=== PATIENT | female | born 1995 | race Caucasian/White ===

== ENCOUNTER → 2019-10-22 10:33 | Outpatient (BNVA) | payer SELFPAY | PROVIDERS: Family Provider Nurse Practitioner Family; Visit Provider Nurse Practitioner Family | DX: N39.0 Urinary tract infection, site not specified (principal); R31.29 Other microscopic hematuria | CPT/HCPCS: 81000 ==

== ENCOUNTER → 2020-05-23 12:34 | Outpatient (BNVA) | payer OTHER, SELFPAY | PROVIDERS: Family Provider Nurse Practitioner Family; Visit Provider Nurse Practitioner Family | DX: Z11.59 Encounter for screening for other viral diseases (principal) | CPT/HCPCS: 87635 ==

== ENCOUNTER → 2020-06-25 13:31 | Outpatient (BNVA) | payer OTHER, SELFPAY | PROVIDERS: Family Provider Nurse Practitioner Family; Visit Provider Nurse Practitioner | DX: J20.9 Acute bronchitis, unspecified (principal); Z11.59 Encounter for screening for other viral diseases | CPT/HCPCS: 87635 ==

== ENCOUNTER → 2020-08-26 15:13 | Outpatient (BNVA) | payer OTHER, SELFPAY | PROVIDERS: Family Provider Nurse Practitioner Family; Visit Provider Nurse Practitioner Family | DX: J01.40 Acute pansinusitis, unspecified (principal); Z20.828 Contact with and (suspected) exposure to other viral communicable diseases | CPT/HCPCS: 87635 ==

== ENCOUNTER 2020-09-02 12:04 | Emergency (ER) | payer OTHER, SELFPAY ==
[2020-09-02 12:21] VITALS: BP 168/79; PULSE 97; RESP 18; TEMP 36.6; O2SAT 97; BMI 65.7
--- NOTE | 2020-09-02 13:03 | XRR_ITS ---
PROCEDURE INFORMATION: Exam: XR Chest, 1 View Exam date and time: 09/02/2020 1:05 PM Age: 24 years old Clinical indication: Shortness of breath. Bronchitis. Pneumonia? TECHNIQUE: Imaging protocol: XR of the chest Views: 1 view. COMPARISON: No relevant prior studies available. FINDINGS: Lungs: No pulmonary consolidation. Pleural spaces: No pleural effusion. No pneumothorax. Heart/Mediastinum: The cardiac silhouette is unremarkable. No gross evidence of pneumomediastinum. Bones/joints: No gross fracture. XR/XR chest 1V portable [id number] IMPRESSION: No acute cardiopulmonary abnormality identified.
[2020-09-02 13:17] VITALS: BP 168/88; PULSE 88; RESP 20; O2SAT 99
[2020-09-02] MEDS: azithromycin 250 mg Tablet 500 MG PO (13:20)
[2020-09-02] MEDS: dexamethasone 4 mg/mL INJ 6 MG IVP (13:20)
[2020-09-02] MEDS: sodium chloride 0.9% 1,000 ML 999 ML IV (13:21)
[2020-09-02 13:51] VITALS: O2SAT 99
[2020-09-02 14:19] LABS: Basophils % 0.5 %; Eosinophils # 0.1 10^3/uL (0.0-0.8); Eosinophils % 1.3 %; Hematocrit 45.1 % (37.0-47.0); Hemoglobin 14.7 g/dL (11.5-15.3); Lymphocytes # 1.7 10^3/uL (0.8-4.8); Lymphocytes % 44.5 %; Mean Corpuscular HGB Conc 32.6 g/dL (30.0-36.0); Mean Corpuscular Hemoglobin 29.1 pg (28.0-34.0); Mean Corpuscular Volume 89.3 fL (81-99); Mean Platelet Volume 10.8 fL (7.4-10.4); Monocytes # 0.4 10^3/uL (0.2-0.9); Monocytes % 11.1 %; Neutrophils # 1.56 10^3/uL (1.8-7.7); Neutrophils % 42.1 %; Nucleated Red Blood Cells % 0 %; Platelet Count 216 10^3/cmm (130-400); Red Blood Count 5.05 10^6/uL (4.1-5.3); Red Cell Distribution Width 13.8 % (12.1-15.1); White Blood Count 3.7 10^3/uL (4.0-10.0)
[2020-09-02 14:31] LABS: Lactic Sepsis W/Reflex 0.8 mmol/L (0.5-2.2)
[2020-09-02 14:36] LABS: HCG, Serum Qual Negative (Negative)
[2020-09-02 14:40] LABS: Alanine Aminotransferase 99 U/L (0-33); Albumin Level 4.1 g/dL (3.5-5.2); Alkaline Phosphatase 123 IU/L (35-105); Anion Gap 11.2 (5-19); Aspartate Amino Transferase 63 U/L (0-32); Blood Urea Nitrogen 13 mg/dL (6-20); Calcium 9.4 mg/dL (8.5-10.5); Carbon Dioxide 27 mmol/L (22-29); Chloride 101 mmol/L (98-107); Globulin 3.8 g/dL (1.3-4.6); Glucose 82 mg/dL (65-115); Osmolality Calculated 279 mOsm/kg (285-295); Potassium 4.2 mmol/L (3.5-5.1); Sodium 135 mmol/L (136-145); Total Bilirubin 0.4 mg/dL (0.15-1.2); Total Protein 7.9 g/dL (6.6-8.7)
--- NOTE | 2020-09-02 14:45 | ED_ITS ---
HPI - COVID General: Chief Complaint: COVID symptoms Stated Complaint: COVID +, IN COVID WR Time Seen by Provider: 09/02/20 12:34 Triage information: Has fever, cough or shortness of breath . No known COVID + exposure last 14 days History of Present Illness: HPI Narrative: The patient is a 24-year-old female who tested positive for coronavirus 7 days ago who comes to the ER complaining of continued cough, shortness of breath. She says her chest hurts when she takes deep breaths, coughs, and moves. The pain is reproducible on palpation. She said she has had bronchitis before and feels like she is developing bronchitis. She is currently taking Augmentin. She has not had steroids. MD complaint: known COVID positive COVID 19 common symptoms: positive dyspnea, body aches and headache(s); negative fever(s), chills, cough, throat pain, nasal congestion or diarrhea COVID 19 other sytmptoms: positive chest pain; negative requiring oxygen or respiratory distress Severity: mild COVID Results: SARS-CoV-2 RNA (RT-PCR) Detected (NOT DETECTED) A 08/26/20 15:13 08/26/20 Review of Systems General: Reports: 10 or more systems reviewed and unremarkable except in HPI and below Const: Reports: body aches; Denies: fever(s) or chills Eyes: Denies: change in vision, blurry vision or eye redness ENMT: Denies: throat pain, swelling of lips/tongue, ear or mastoid pain or nasal congestion Card: Reports: chest pain; Denies: palpitations, irregular heart rhythm, edema, dyspnea on exertion or orthopnea Resp: Reports: dyspnea GI: Denies: abdominal pain, diarrhea or GI cramping : Denies: flank pain, difficulty voiding, urinary frequency or urinary urgency Musc: Denies: neck pain, back pain, extremity pain, joint pain, joint redness, limited range of motion or muscle weakness Skin/Breast: Denies: rash, pruritus, erythema, skin pain or skin tenderness Neuro: Reports: headache(s) Psych: Denies: anxiety or depression Endo: Denies: polyuria All/Imm: Denies: urticaria, throat swelling or tongue swelling PFSH ED PFSH: Social History Smoking and tobacco status: never smoked Alcohol intake: current Physical Exam Const: COMMON NORMALS: no acute distress, average body habitus, patient oriented x3, no limitations, healthy appearing, alert and well nourished GENERAL APPEARANCE: cooperative, comfortable, well kempt and well developed ORIENTATION/CONSCIOUSNESS: Yes awake, Yes oriented to person, Yes oriented to place and Yes oriented to time HENMT: COMMON NORMALS: normocephalic, external ears normal and Normal external nose present HEAD & SCALP: normal to inspection and normocephalic NOSE: Normal external nose present EXTERNAL EAR: Yes external ears normal MOUTH: Normal oral and palatal mucosa present THROAT: posterior oropharynx normal Eye: COMMON NORMALS: Equal, round and reactive pupils present and EOMs intact bilaterally GENERAL EYE: appearance normal, both eyes and all related structures PUPIL: Yes Equal, round and reactive pupils present Neck/C-Spine: COMMON NORMALS: full ROM, no lymphadenopathy, no meningeal signs and no JVD GENERAL: Yes normal visual inspection Lymph: LYMPHATIC: no lymphadenopathy noted Chest: COMMONS NORMALS: normal inspection of the chest OTHER: Left chest wall tenderness reproducing her chief complaint. Resp: COMMON NORMALS: normal respiratory effort, No retractions, No use of accessory muscles, clear to auscultation bilaterally and percussion normal EFFORT & INSPECTION: Yes able to speak in complete sentences AUSCULTATION: clear to auscultation bilaterally PERCUSSION: percussion normal Cardio: COMMON NORMALS: no JVD, regular rate, regular rhythm, S1 normal heart sound present, S2 normal heart sound present and Peripheral pulses 2+ throughout RATE: regular rate RHYTHM: regular rhythm HEART SOUNDS: S1 normal heart sound present and S2 normal heart sound present PERIPHERAL PULSES: Peripheral pulses 2+ throughout GI: COMMON NORMALS: Normal to inspection, nondistended, normoactive bowel sounds present, Soft to palpation, non-tender and no masses INSPECTION: Yes normal to inspection PALPATION: Yes Soft to palpation : COMMON NORMALS: Yes no CVA tenderness BLADDER/KIDNEY EXAM: Yes no CVA tenderness Back/Pelvis: COMMON NORMALS: no CVA tenderness, thoracic and lumbar spine normal to inspection, no thoracic nor lumbar tenderness and thoraco-lumbar ROM normal Extremity: COMMON NORMALS: normal to inspection, full ROM, capillary refill normal, no joint enlargement and no pedal edema GENERAL: Yes normal exam except as noted Neuro: COMMON NORMALS: patient oriented x3, CN's II-XII intact bilaterally, moves all extremities, no focal motor deficits, no sensory deficits noted and gait normal SENSORIUM/ORIENTATION: Yes alert, Yes oriented to person, Yes oriented to place and Yes oriented to time MENINGEAL SIGNS: Yes no meningeal signs Psych: COMMON NORMALS: mental status grossly normal, Normal thought process present, cooperative, normal affect and speech normal APPEARANCE: Yes well kempt ATTITUDE: Yes calm SPEECH: Yes normal speech THOUGHT PROCESS: Normal thought process present Skin: COMMON NORMALS: no rashes or lesions noted GENERAL SKIN EXAM: no rashes or lesions noted Course Vital Signs: Vital signs: Vital Signs Temperature 97.9 F 09/02/20 12:21 Pulse Rate 88 09/02/20 13:17 Respiratory Rate 20 H 09/02/20 13:17 Blood Pressure 168/88 09/02/20 13:17 Pulse Oximetry 99 09/02/20 13:51 MDM - COVID MDM Narrative: Medical decision making narrative: The patient suffered from c oronavirus infection diagnosed 7 days ago. She continues to have mild symptoms. Steroids and azithromycin will be added to her regimen. Hepatitis acute panel is negative today. Return to the ER with worsening symptoms otherwise follow-up with your primary care physician in a few days to monitor improvement of symptoms Lab Data: Labs: Lab Results 09/02/20 09/02/20 09/02/20 Range/Units 13:40 13:40 13:40 WBC 3.7 L (4.0-10.0) 10^3/ uL RBC 5.05 (4.1-5.3) 10^6/u L Hgb 14.7 (11.5-15.3) g/dL Hct 45.1 (37.0-47.0) % MCV 89.3 (81-99) fL MCH 29.1 (28.0-34.0) pg MCHC 32.6 (30.0-36.0) g/dL RDW 13.8 (12.1-15.1) % Plt Count 216 (130-400) 10^3/c mm MPV 10.8 H (7.4-10.4) fL Neut % (Auto) 42.1 % Lymph % (Auto) 44.5 % [place] % (Auto) 11.1 % Eos % (Auto) 1.3 % Baso % (Auto) 0.5 % Neut # (Auto) 1.56 L (1.8-7.7) 10^3/u L Lymph # (Auto) 1.7 (0.8-4.8) 10^3/u L [place] # (Auto) 0.4 (0.2-0.9) 10^3/u L Eos # (Auto) 0.1 (0.0-0.8) 10^3/u L Baso # (Auto) 0.0 (0.0-0.1) 10^3/u L Nucleated RBC % (a uto) 0 % Nucleated RBCs # 0.0 /100WBC Sodium 135 L (136-145) mmol/L Potassium 4.2 (3.5-5.1) mmol/L Chloride 101 (98-107) mmol/L Carbon Dioxide 27 (22-29) mmol/L Anion Gap 11.2 (5-19) BUN 13 (6-20) mg/dL Creatinine 0.6 (0.5-0.9) mg/dL GFR Calculation 125.0 (90-130) mL/min Glucose 82 (65-115) mg/dL Calculated Osmolal ity 279 L (285-295) mOsm/k g Lactic Acid 0.8 (0.5-2.2) mmol/L Calcium 9.4 (8.5-10.5) mg/dL Total Bilirubin 0.4 (0.15-1.2) mg/dL AST 63 H (0-32) U/L ALT 99 H (0-33) U/L Alkaline Phosphata se 123 H (35-105) IU/L Total Protein 7.9 (6.6-8.7) g/dL Albumin 4.1 (3.5-5.2) g/dL Globulin 3.8 (1.3-4.6) g/dL HCG, Qual (Negative) Hepatitis A IgM Ab (Nonreactive) Hep Bs Antigen (Nonreactive) Hep B Core IgM Ab (Nonreactive) Hepatitis C Antibo dy (Nonreactive) 09/02/20 09/02/20 Range/Units 13:40 13:40 WBC (4.0-10.0) 10^3/ uL RBC (4.1-5.3) 10^6/u L Hgb (11.5-15.3) g/dL Hct (37.0-47.0) % MCV (81-99) fL MCH (28.0-34.0) pg MCHC (30.0-36.0) g/dL RDW (12.1-15.1) % Plt Count (130-400) 10^3/c mm MPV (7.4-10.4) fL Neut % (Auto) % Lymph % (Auto) % [place] % (Auto) % Eos % (Auto) % Baso % (Auto) % Neut # (Auto) (1.8-7.7) 10^3/u L Lymph # (Auto) (0.8-4.8) 10^3/u L [place] # (Auto) (0.2-0.9) 10^3/u L Eos # (Auto) (0.0-0.8) 10^3/u L Baso # (Auto) (0.0-0.1) 10^3/u L Nucleated RBC % (a uto) % Nucleated RBCs # /100WBC Sodium (136-145) mmol/L Potassium (3.5-5.1) mmol/L Chloride (98-107) mmol/L Carbon Dioxide (22-29) mmol/L Anion Gap (5-19) BUN (6-20) mg/dL Creatinine (0.5-0.9) mg/dL GFR Calculation (90-130) mL/min Glucose (65-115) mg/dL Calculated Osmolal ity (285-295) mOsm/k g Lactic Acid (0.5-2.2) mmol/L Calcium (8.5-10.5) mg/dL Total Bilirubin (0.15-1.2) mg/dL AST (0-32) U/L ALT (0-33) U/L Alkaline Phosphata se (35-105) IU/L Total Protein (6.6-8.7) g/dL Albumin (3.5-5.2) g/dL Globulin (1.3-4.6) g/dL HCG, Qual Negative (Negative) Hepatitis A IgM Ab Non-reactive (Nonreactive) Hep Bs Antigen Non-reactive (Nonreactive) Hep B Core IgM Ab Non-reactive (Nonreactive) Hepatitis C Antibo dy Non-reactive (Nonreactive) COVID Results: SARS-CoV-2 RNA (RT-PCR) Detected (NOT DETECTED) A 08/26/20 15:13 08/26/20 Discharge Plan Discharge Patient Disposition: Home Clinical Impression: COVID-19 Condition: Stable Prescriptions: New azithromycin 250 mg tablet 250 mg PO DAILY 5 Days Qty: 4 RF: 0 Medrol (Nahid) 4 mg tablets,dose pack See Rx Instructions .ROUTE .COMPLEX Qty: 21 RF: 0 No Action amoxicillin-pot clavulanate [Augmentin] 875-125 mg tablet 1 tab PO BID 10 Days Qty: 20 RF: 0 Aleve 220 mg Tablet 880 mg PO PRN RF: 0 Discharge Orders: Discharge ED (Routine); Ordered 09/02/20 Ordered By: Baljinder Zaragoza Discharge Diet: Advance as tolerated Discharge Activity: Resume usual activity Patient Instructions: Opioid Safety, Upper Respiratory Infection - Adult Activity Restrictions/Additional Instructions: You are suffering from coronavirus infection. Please take the antibiotic and steroid as directed and return to the ER with worsening symptoms otherwise follow-up with your primary care physician in a few days to monitor improvement of your symptoms. The hepatitis test is normal. Coding Level of Care Code ED Chemical Tank Worker for Meera Fwpérez Exam Comprehensive
[2020-09-02 17:58] LABS: Hepatitis A Antibody IgM Non-Reactive (Nonreactive); Hepatitis B Core IgM Non-Reactive (Nonreactive); Hepatitis B Surface Antigen Non-Reactive (Nonreactive); Hepatitis C Virus Antibody Non-Reactive (Nonreactive)
[2020-09-02 18:28] VITALS: O2SAT 99
== END 2020-09-02 18:30 | disposition home or self-care (01) ==
PROVIDERS: Emergency Provider Family Medicine
DX: U07.1 COVID-19 (principal)
CPT/HCPCS: 71045; 80053; 80074; 83605; 84703; 85025; 96361; 96374; 99283; J1100; J7030; Q0144

== ENCOUNTER 2020-12-27 10:20 | Emergency (ER) | payer SELFPAY ==
[2020-12-27 10:25] VITALS: BP 177/137; PULSE 78; RESP 15; TEMP 36.4; O2SAT 100; BMI 61.8
--- NOTE | 2020-12-27 10:28 | XR_ITS ---
WS: [id number] Left ankle, 3 views, 12/27/2020 Clinical Data: injury/pain Comparison: None. Findings: No fractures or dislocations are seen. The ankle mortise is normal. The talus and calcaneus are unrem arkable. No soft tissue swelling over the medial or lateral malleolus is seen. XR/XR ankle LT min 3V* [id number] Impression: Negative left ankle.
--- NOTE | 2020-12-27 10:28 | W.ED.LOWEXIN ---
HPI - Extremity Injury (Lower) General: Chief Complaint: Extremity Injury, Lower Stated Complaint: left ankle pain Time Seen by Provider: 12/27/20 10:21 Source: patient Mode of arrival: ambulatory Limitations: no limitations History of Present Illness: HPI Narrative: Patient is a 25-year-old female who presents to ED today with a complaint of left ankle pain. Patient tells me she has recently began exercising and attempts to lose weight and states she was walking on a treadmill on an incline yesterday when she began noticing pain in her left ankle. She reports injuring her ankle 2 years ago after rolling it after jumping in a shallow pool. She states she has had pain in the ankle since that event. She feels like her ankle is swollen. She has no other complaints at this time. complaint: ankle injury Onset (ago): day(s) (yesterday) Type of Injury: unknown Place: home Severity: moderate Relieving factors: immobilization Exacerbating factors: weight bearing, movement and palpation Associated symptoms: Reports no associated symptoms Other symptoms: none Review of Systems Card: Denies: chest pain Resp: Denies: dyspnea Musc: Reports: joint pain (L ankle) and joint swelling (L ankle); Denies: neck pain, back pain, extremity pain, extremity swelling, joint redness, joint warmth or limited range of motion PFSH ED PFSH: Social History Smoking and tobacco status: never smoked Alcohol intake: current Physical Exam Const: COMMON NORMALS: no acute distress, no limitations and alert GENERAL APPEARANCE: cooperative NUTRITIONAL APPEARANCE: obese morbidly obese Extremity: COMMON NORMALS: capillary refill normal, no clubbing, cyanosis or edema, no calf tenderness and no pedal edema GENERAL: Yes normal exam except as noted LEFT LOWER EXTREMITY: Yes ankle joint (TTP medial malleolus) Left ankle: Yes neurovascular exam (normal) Neuro: COMMON NORMALS: moves all extremities, no focal motor deficits, no sensory deficits noted and gait normal SENSORIUM/ORIENTATION: Yes alert Skin: COMMON NORMALS: no rashes or lesions noted GENERAL SKIN EXAM: no rashes or lesions noted TRAUMA: no lacerations or abrasions Course Vital Signs: Vital signs: Vital Signs Temperature 97.5 F L 12/27/20 10:25 Pulse Rate 78 12/27/20 10:53 Respiratory Rate 15 12/27/20 10:25 Blood Pressure 177/137 12/27/20 10:53 Pulse Oximetry 100 12/27/20 10:53 MDM - Extremity Injury (Lower) Imaging Data^: XR L ankle: Radiologist's impression: [address] [address] XRay Report Signed Patient: Yuniel Rogers Unit #: [id number] : 1995 Age/Sex: 25 / F ADM Date: 12/27/20 Loc: ER Room/Bed: Attending Dr: Ordering Provider/Ordering MD: Monica Mason Date of Service: 12/27/20 Procedure(s): XR ankle LT min 3V* [id number] Accession Number(s): [id number] Report Number: [id number] WS: [id number] Left ankle, 3 views, 12/27/2020 Clinical Data: injury/pain Comparison: None. Findings: No fractures or dislocations are seen. The ankle mortise is normal. The talus and calcaneus are unremarkable. No soft tissue swelling over the medial or lateral malleolus is seen. XR/XR ankle LT min 3V* [id number] Impression: Negative left ankle. Dictated By: Jewell Marina MD Signed By: Jewell Marina MD Signed Date/Time: 12/27/20 1052 DD/ 1051 Discharge Plan Discharge Patient Disposition: Home Clinical Impression: Left ankle sprain Qualifiers: Encounter type: initial encounter Involved ligament of ankle: unspecified ligament Qualified Code(s): S93.402A - Sprain of unspecified ligament of left ankle, initial encounter Condition: Stable Prescriptions: No Action fluconazole [Diflucan] 150 mg tablet 150 mg PO Q3D 7 Days Qty: 3 RF: 0 nystatin 100,000 unit/gram cream 1 applic topical BID Qty: 30 RF: 2 Aleve 220 mg Tablet 880 mg PO PRN RF: 0 Discharge Orders: Discharge ED (Routine); Ordered 12/27/20 Ordered By: Monica Mason Patient Instructions: Ankle Sprain (ED), RICE Therapy (ED) Coding Level of Care Code ED Contract Administration Coordinator for Chg Fwd Exam Expanded Problem Focused
[2020-12-27 10:53] VITALS: BP 177/137; PULSE 78; O2SAT 100
== END 2020-12-27 11:02 | disposition home or self-care (01) ==
PROVIDERS: Emergency Provider Physician Assistant
DX: S93.402A Sprain of unspecified ligament of left ankle, initial encounter (principal); X58.XXXA Exposure to other specified factors, initial encounter; Y93.A1 Activity, exercise machines primarily for cardiorespiratory conditioning
CPT/HCPCS: 73610; 99283; E0114

== ENCOUNTER → 2021-05-27 14:05 | Outpatient (BNVA) | payer OTHER, SELFPAY | PROVIDERS: Visit Provider Nurse Practitioner | DX: Z20.822 Contact with and (suspected) exposure to COVID-19 (principal); J02.9 Acute pharyngitis, unspecified; R50.9 Fever, unspecified | CPT/HCPCS: 87635; 87880 ==

== ENCOUNTER → 2021-09-18 09:53 | Outpatient (BNVA) | payer SELFPAY | PROVIDERS: Visit Provider Physician Assistant | DX: M54.16 Radiculopathy, lumbar region (principal) | CPT/HCPCS: 72110 ==

== ENCOUNTER 2021-10-17 07:04 | Day surgery (SDC) | payer SELFPAY ==
[2021-10-12 10:04] VITALS: BMI 57.3
[2021-10-12 10:34] LABS: Basophils # 0.1 10^3/uL (0.0-0.1); Basophils % 0.6 %; Eosinophils # 0.1 10^3/uL (0.0-0.8); Eosinophils % 1.3 %; Hematocrit 43.3 % (37.0-47.0); Hemoglobin 14.4 g/dL (11.5-15.3); Lymphocytes # 1.8 10^3/uL (0.8-4.8); Lymphocytes % 21.3 %; Mean Corpuscular HGB Conc 33.3 g/dL (30.0-36.0); Mean Corpuscular Hemoglobin 29.5 pg (28.0-34.0); Mean Corpuscular Volume 88.7 fl (81-99); Mean Platelet Volume 10.4 fL (7.4-10.4); Monocytes # 0.8 10^3/uL (0.2-0.9); Monocytes % 8.9 %; Neutrophils # 5.76 10^3/uL (1.8-7.7); Neutrophils % 67.7 %; Nucleated Red Blood Cells % 0 %; Platelet Count 268 10^3/cmm (130-400); Red Blood Count 4.88 10^6/uL (4.1-5.3); Red Cell Distribution Width 13.4 % (12.1-15.1); White Blood Count 8.5 10^3/uL (4.0-10.0)
--- NOTE | 2021-10-12 10:44 | P.ANESASSM_ITS ---
Pre-Anesthetic Assessment Height/Weight: Height 1.7 m Weight 166.015 kg Operation Date: 10/17/21 08:30 Proposed Procedures p Lumbar Spine Decompression L4/5, L5/S1 32161/11413/m51.26(Left) - Nitish Suarez DO Familial anesthetic complications: none Was Beta Maribel taken within 24 hours: N/A Social No alcohol and No tobacco Exam alert, oriented x 3, clear to auscultation bilaterally and regular rate & rhythm Airway Submandibular: within normal limits Cervical ROM: within normal limits Mallampati: Class II Dentition: full Metabolic Morbid Obesity and Thyroid Disease PCOS [facility] [place] Lower Back Pain LLE radicular symptoms Anesthetic Plan ASA status: 3 Anesthesia: General Medications/Allergies Home Medications Medication Instructions Recorded Confirmed Last Taken Type naproxen sodium 220 mg tablet 880 mg PO PRN PRN 09/02/20 09/18/21 Unknown History (Aleve) levothyroxine 50 mcg capsule 50 mcg PO DAILY 07/29/21 10/12/21 Unknown History metformin 500 mg tablet 1,000 mg PO BID 07/29/21 10/12/21 Unknown History Allergies Allergy/AdvReac Type Severity Reaction Status Date / Time duloxetine [From Cymbalta] Allergy RASH Verified 10/12/21 10:00 [facility] Anesthesia Social History Smoking and tobacco status: never smoked Alcohol intake: current Data Anesthesia : 10/12/21 10:18 10/12/21 10:18 Short CBC 10/12/21 Range/Units 10:18 WBC 8.5 (4.0-10.0) 10^3/uL Hgb 14.4 (11.5-15.3) g/dL Hct 43.3 (37.0-47.0) % MCV 88.7 (81-99) fl Plt Count 268 (130-400) 10^3/cmm Neut % (Auto) 67.7 % Neut # (Auto) 5.76 (1.8-7.7) 10^3/uL Cardiac Studies: No Data to Display
[2021-10-12 10:56] LABS: Anion Gap 15.1 (5-19); Blood Urea Nitrogen 18 mg/dL (6-20); Calcium 9.8 mg/dL (8.5-10.5); Carbon Dioxide 23 mmol/L (22-29); Chloride 102 mmol/L (98-107); Glomerular Filtration Rate 123.9 mL/min (90-130); Glucose 88 mg/dL (65-115); Osmolality Calculated 283 mOsm/kg (285-295); Potassium 4.1 mmol/L (3.5-5.1); Sodium 136 mmol/L (136-145)
[2021-10-17] VITALS (10 sets, daily range): BP systolic 115–199; BP diastolic 72–104; PULSE 72–103; RESP 16–20; TEMP 36.2–36.8; O2SAT 97–99
--- NOTE | 2021-10-17 | SCC_ITS ---
Procedure done: 1. L4/5 laminectomy with partial facetectomy 2. L5/S1 laminectomy with partial facetectomy 19.3 seconds of fluoroscopic guidance, for a cumulative dose of 17.96 mGy, was provided to Dr. Suarez by the radiology department. C-arm images of the lumbar spine were saved for the patient's permanent record. [id number]
[2021-10-17] MEDS: sodium chloride 0.9% 1,000 ML 30 ML IV (07:48)
[2021-10-17] MEDS: scopolamine 1.5 Patch 1 PATCH TRANSDERMA (07:48)
--- NOTE | 2021-10-17 08:07 | W.PM.OPSUD ---
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
[2021-10-17 08:12] LABS: OR HCG Qualitative Urine Negative (Negative)
--- NOTE | 2021-10-17 08:33 | P.ANESUD_ITS ---
Pre-Anesthetic Update Pre-Anesthetic Assessment: Date of Surgery/Procedure: 10/17/21 Preop Chloe gnosis: HNP Left L4-5,L5-S1 Proposed Procedure: Operation Date: 10/17/21 08:30 Proposed Procedures p Lumbar Spine Decompression L4/5, L5/S1 70907/25569/m51.26(Left) - Nitishmaira Suarez, DO Any changes to Pre-Anesthetic Assessment?: No Last Intake: Intake Last Liquid Date 10/16/21 Last Liquid Time 19:00 Last Solid Date 10/16/21 Last Solid Time 19:00 Vitals: Temperature 97.9 F 10/17/21 07:36 Temperature Source Temporal Artery S can 10/17/21 07:36 Pulse Rate 103 H 10/17/21 07:36 Respiratory Rate 18 10/17/21 07:36 Blood Pressure 143/104 10/17/21 07:36 Blood Pressure Shagufta n 117 10/17/21 07:36 Pulse Oximetry 97 10/17/21 07:36 Oxygen Delivery Me thod 10/17/21 07:39 Exam: Pre-Anes Outpt Exam: alert, oriented x 3, clear to auscultation bilaterally and regular rate & rhythm Cardiac Studies: No Data to Display
[2021-10-17] MEDS: fentaNYL 50 mcg/mL INJ 2mL IVP (08:36)
--- NOTE | 2021-10-17 10:01 | P.OP_ITS ---
Operative Report Date of procedure: October 17, 2021 Pre-op diagnosis: Preop Diagnosis HNP Left L4-5,L5-S1 Post-op diagnosis: same Procedure done: 1. L4/5 laminectomy with partial facetectomy 2. L5/S1 laminectomy with partial facetectomy Surgeon: Nitish Suarez Associate Professor Of Sociology: Patrick Echavarria Associate Professor Of Sociology: The printing assistant, Patrick Echavarria, PAC was needed for his expertise under the microscope. He was important and necessary throughout the procedure to complete in a safe and timely manner. He assisted with patient positioning prepping and draping tissue retraction suctioning of the operative field protection of the dural sac and tissue closure Estimated blood loss (mL): 20 Procedure: 1. L4/5 laminectomy with partial facetectomy 2. L5/S1 laminectomy with partial facetectom Patient is brought to the operative suite. After undergoing anesthesia they are placed in the prone position. All areas of impingement are well padded. Patient is then prepped and draped in the normal sterile fashion. A skin incision is made over the L4/5 level. This is confirmed under c-arm guidance. A series of dilators are passed and the tubular retractor is docked on the L4 lamina. A bovie is used to clear the soft tissue off the lamina and the L 4/5 facet joint. A high speed chaparro is then used to perform the laminectomy and take down the medial aspect of the L 4/5 facet joint. A kerrison rongeure was then used to take down the remaining lamina and smooth the edge of the laminectomy up to the point where the ligamentum flavum attaches. Attention was then brought to the medial aspect of the facet joint. The remaining medial aspect of the superior and inferior aspect of the facet joint were taken down with the kerrison from the pedicle of L4 to L 5. The facet joint had significant hypertrophy. Attention was then brought to the Ligamentum Flavum. The ligament was taken down from the lamina of L4 to L5 and out medially to the remaining facet joint. The ligament was thick. The dura was then exposed. The dura was in good repair. The L4 nerve was then traced with a curette out the L4/5 foramen and found to be adequately decompressed. The L5 nerve was traced with a curette around the L5 pedicle. The lateral recess was opened with a kerrison helping to further decompress the L5 nerve. Wound is then irrigated copiously with saline and surgiflo is used to stop any bleeding. The tubular retractor is removed and A skin incision is made over the L5/S1 level. This is confirmed under c-arm guidance. A series of dilators are passed and the tubular retractor is docked on the L5 lamina. A bovie is used to clear the soft tissue off the lamina and the L 5/S1 facet joint. A high speed chaparro is then used to perform the l aminectomy and take down the medial aspect of the L 5/S1 facet joint. A kerrison rongeure was then used to take down the remaining lamina and smooth the edge of the laminectomy up to the point where the ligamentum flavum attaches. Attention was then brought to the medial aspect of the facet joint. The remaining medial aspect of the superior and inferior aspect of the facet joint were taken down with the kerrison from the pedicle of L5 to S1. The facet joint had significant hypertrophy. Attention was then brought to the Ligamentum Flavum. The ligament was taken down from the lamina of L5 to S1 and out medially to the remaining facet joint. The ligament was thick. The dura was then exposed. The dura was in good repair. The L5 nerve was then traced with a curette out the L5/S1 foramen and found to be adequately decompressed. The S1 nerve was traced with a curette around the S1 pedicle. The lateral recess was opened with a kerrison helping to further decompress the S1 nerve. Wound is then irrigated copiously with saline and surgiflo is used to stop any bleeding. The tubular retractor is removed and the wound is closed with vicryl and monocryl suture. Glue is then used to protect the wound. A sterile dressing is then placed. Patient was then placed in the supine position and transferred to the PACU in stable condition.
--- NOTE | 2021-10-17 10:06 | XR_ITS ---
WS: [id number] C-ARM RADIOGRAPHS LUMBAR SPINE; 2 IMAGES HISTORY: OR PICS COMPARISON: 09/18/2021 Intraoperative imaging obtained during spinal decompression. The compression indicated at the L5-S1 l evel. XR/XR lumbar spine 1V 15431 IMPRESSION: Intraoperative imaging during spine decompression.
[2021-10-17] MEDS: HYDROmorphone 1 mg/mL INJ 1 mL 0.5 MG IVP ×2 (10:20→11:14)
[2021-10-17] MEDS: HYDROcodone-acetaminophen 5-325 mg Tablet 1 TAB PO (11:47)
--- NOTE | 2021-10-17 16:05 | ANE.PACU2 ---
Inpatient post-anesthesia follow up: Airway intact: Yes Vital signs: Temperature 98.2 F Pulse Rate 82 Respiratory Rate 18 Blood Pressure 128/80 Pulse Oximetry 98 Oxygen Delivery Me thod Room Air Oxygen Flow Rate 6 Fraction of Inspir ed Oxygen Hydration adequate: Yes Nausea and vomiting: No Pain level: 5 Mental status: Baseline
== END 2021-10-17 13:00 | disposition home or self-care (01) ==
PROVIDERS: Physician Assistant; Visit Provider Orthopaedic Surgery
PROC: (CPT 63005; principal; 2021-10-17 08:20)
DX: M51.26 Other intervertebral disc displacement, lumbar region (principal); M51.27 Other intervertebral disc displacement, lumbosacral region; M51.37 Other intervertebral disc degeneration, lumbosacral region; M54.16 Radiculopathy, lumbar region; E66.01 Morbid (severe) obesity due to excess calories; Z68.43 Body mass index [BMI] 50.0-59.9, adult; E28.2 Polycystic ovarian syndrome
CPT/HCPCS: 63047; 63048; 72020; 76000; 80048; 81025; 84703; 85025; J0690; J1100; J1170; J2405; J2704; J2710; J3010; J3490; J7030

== ENCOUNTER → 2021-12-18 08:56 | Outpatient (BNVA) | payer SELFPAY | PROVIDERS: Visit Provider Orthopaedic Surgery | DX: M54.6 Pain in thoracic spine (principal); M54.2 Cervicalgia | CPT/HCPCS: 72050; 72072 ==

== ENCOUNTER 2021-12-25 06:00 | Outpatient (RCR) | payer SELFPAY | END 2022-01-17 23:59 | disposition home or self-care (01) | LOC: SPT 06:00 | PROVIDERS: Referring Provider Orthopaedic Surgery; Visit Provider Orthopaedic Surgery | DX: Z47.89 Encounter for other orthopedic aftercare (principal); Z98.890 Other specified postprocedural states; M54.42 Lumbago with sciatica, left side; R26.89 Other abnormalities of gait and mobility | CPT/HCPCS: 97110; 97162 ==

== ENCOUNTER 2022-01-18 06:00 | Outpatient (RCR) | payer MEDICAID, SELFPAY | END 2022-02-17 23:59 | disposition home or self-care (01) | LOC: SPT 06:00 | PROVIDERS: Referring Provider Orthopaedic Surgery; Visit Provider Orthopaedic Surgery | DX: M54.50 Low back pain, unspecified (principal) | CPT/HCPCS: 97110; G0283 ==

== ENCOUNTER 2022-01-22 10:26 | Outpatient (CLI) | payer MEDICAID, SELFPAY ==
--- NOTE | 2022-01-22 10:15 | MR_ITS ---
WS: [id number] MRI CERVICAL SPINE NONCONTRAST HISTORY: pain COMPARISON: None available. Technique: Multiplanar, multisequence noncontrast imaging of the cervical spine. Motion artifact. Straightening of the normal cervical lordosis. Disc spaces and vertebral body heights are well-mainta ined. Signal within the cervical cord is normal. Visualized posterior fossa is unremarkable. Craniocervical junction, C1 and C2 relationship, odontoid process and soft tissues are normal. C2-C3: Normal. C3-C4: Normal. C4-C5: Normal. C5-C6: Very minimal osteophytic ridging. No stenosis. C6-C7: Very minimal osteophytic ridging. No stenosis. C7-T1: Normal. Paraspinal soft tissue are normal. MR/MR cervical spin wo con* [id number] IMPRESSION: 1. No significant central or foraminal stenosis. 2. No disc protrusions or stenosis. 3. Very minimal osteophytic ridging at C5-6 and C6-7.
--- NOTE | 2022-01-22 11:00 | MR_ITS ---
WS: [id number] MRI THORACIC SPINE noncontrast. HISTORY: Mid back pain. COMPARISON: None available. TECHNIQUE: Multiplanar sequences are performed in sagittal and axial planes. Very slight straightening of the normal thoracic kyphosis. No marrow edema. Disc spaces are well-main tained. There are Schmorl's nodes at multiple levels beginning at T7-T12. No retropulsion of the vert ebral bodies. Signal and size of the thoracic cord is normal. T1-2: Normal. T2-3: Normal. T3-4: Normal. T4-5: Normal. T5-6: Normal. T6-7: Normal. T7-8: Very mild osteophytic ridging. Mild encroachment upon the ventral thecal sac but no stenosis. T8-9: Mild osteophytic ridging and mild facet and ligamentum flavum hypertrophy. Very tiny central d isc protrusion with encroachment upon the ventral thecal sac. No displacement. T9-10: Mild osteophytic ridging. No stenosis. T10-11: Normal. T11-12: Mild osteophytic ridging and mild diffuse annular disc bulge. Mild encroachment upon the odell tral thecal sac. There is a very shallow LEFT paracentral disc protrusion with minimal encroachment u deborah the traversing T12 nerve root. No displacement. No high-grade stenosis. Visualized liver appears enlarged and with steatosis. MR/MR thoracic spin wo con* [id number] IMPRESSION: 1. No high-grade central stenosis or large disc protrusions. 2. Mild encroachment upon the ventral thecal sac at T7-8, T8-9 and T10-11 due to mild osteophytic ridging and mild disc disease. 3. Very shallow LEFT paracentral disc protrusion at T11-12. 4. Tiny central disc protrusion at T8-9 contacts the ventral thecal sac.
== END 2022-01-22 10:27 | disposition home or self-care (01) ==
PROVIDERS: Visit Provider Orthopaedic Surgery
DX: M25.78 Osteophyte, vertebrae (principal); M51.24 Other intervertebral disc displacement, thoracic region; M54.2 Cervicalgia
CPT/HCPCS: 72141; 72146

== ENCOUNTER 2022-04-16 07:04 | Outpatient (CLI) | payer MEDICAID, SELFPAY ==
--- NOTE | 2022-04-16 07:15 | MR_ITS ---
WS: [id number] MRI LUMBAR SPINE NONCONTRAST TECHNIQUE: Sagittal T1, T2 and STIR imaging. Axial T1 and T2 imaging. CLINICAL INFORMATION: pain COMPARISON: MRI September 17, 2021 FINDINGS: Mild lumbar curve. No acute compression. History of prior LEFT L4-L5 hemilaminectomy and partial disc ectomy. L1-L2: Normal. L2-L3: Normal. L3-L4: Mild annular bulging. Mild facet arthropathy. Spinal canal and foramen are patent. L4-L5: Prior postoperative changes LEFT hemilaminectomy and partial discectomy. Granulation tissue or recurrent protrusion slightly impinges the LEFT subarticular recess. Correlation with L5 nerve root symptoms. Mild central canal stenosis. Mild facet arthropathy. L5-S1: Mild disc bulging with osteophytic ridging. Slight effacement of ventral thecal sac. Mild face t arthropathy. Spinal canal and foramen are patent. RIGHT eccentric disc osteophytic ridging slightly encroaches on the far exiting RIGHT L5 nerve root. Visualized pelvic bony structures: Normal. Paravertebral soft tissues: Normal. MR/MR lumbar spine wo con* [id number] IMPRESSION: 1. Prior postoperative changes LEFT hemilaminectomy and partial discectomy. Gr anulation tissue or recurrent protrusion slightly impinges the LEFT subarticula r recess. Correlation with L5 nerve root symptoms. Mild central canal stenosis. This can be further evaluated with gadolinium if indicated. 2. RIGHT eccentric disc osteophytic ridging slightly encroaches on the far exi ting RIGHT L5 nerve root. 3. Mild facet arthropathy L3-L5.
--- NOTE | 2022-04-16 08:00 | MR_ITS ---
WS: [id number] MRI THORACIC SPINE WITHOUT CONTRAST TECHNIQUE: Sagittal T1, T2 and STIR imaging. Axial T2 imaging. Noncontrast imaging obtained. CLINICAL INFORMATION: pain COMPARISON: MRI January 22, 2022 FINDINGS: Minimal thoracic curve. Schmorl's nodes in the mid and lower thoracic spine. Cord signal is normal. N o high-grade central canal narrowing. Tiny shallow disc protrusions at T8-T9, T9-T10, T11-T12. No high-grade canal stenosis. Mild to modera te facet arthropathy lower thoracic spine. Mild RIGHT T10-T11 bony foraminal narrowing. Adrenal glands are normal. Normal caliber thoracic aorta. Normal paravertebral soft tissues. MR/MR thoracic spin wo con* [id number] IMPRESSION: 1. Mild thoracic curve. Mild thoracic kyphosis. 2. Tiny shallow central protrusions at T8-T9 T9-T10, T11-T12. No significant c entral canal stenosis. 3. Mild RIGHT T9-T10 bony foraminal narrowing. 4. Mild to moderate facet arthropathy lower thoracic spine. 5. No significant interval changes compared to previous.
== END 2022-04-16 07:05 | disposition home or self-care (01) ==
LOC: RAD 07:04
PROVIDERS: Visit Provider Orthopaedic Surgery
DX: M51.24 Other intervertebral disc displacement, thoracic region (principal); M47.814 Spondylosis without myelopathy or radiculopathy, thoracic region; M47.816 Spondylosis without myelopathy or radiculopathy, lumbar region; M25.78 Osteophyte, vertebrae
CPT/HCPCS: 72146; 72148

== ENCOUNTER 2022-05-03 08:49 | Day surgery (SDC) | payer MEDICAID, SELFPAY ==
[2022-04-25 09:02] VITALS: BMI 60.8
--- NOTE | 2022-04-25 09:38 | ANES.PREANE2 ---
Pre-Anesthetic Assessment Height/Weight: Height 1.73 m Weight 181.437 kg Preop Diagnosis: HNP Left L4-5,L5-S1 Operation Date: 05/03/22 12:35 Proposed Procedures p Lumbar Spine Decompression L3/4-L5/S1 42811/84188/M51.27/M51.26 OPEN(Left) - Nitish Suarez DO Familial anesthetic complications: none Was Beta Maribel taken within 24 hours: N/A Was Clonidine taken within 24 hours: N/A Social No alcohol and No tobacco Exam alert, oriented x 3, clear to auscultation bilaterally and regular rate & rhythm Airway Submandibular: within normal limits Cervical ROM: within normal limits Mallampati: Class II Dentition: full Metabolic Morbid Obesity and Thyroid Disease PC[facility] [place]/skel Lower Back Pain Anesthetic Plan ASA status: 3 Anesthesia: General Medications/Allergies Home Medications Medication Instructions Recorded Confirmed Last Taken Type naproxen sodium 220 mg tablet 880 mg PO PRN PRN Pain 09/02/20 04/25/22 Unknown History (Aleve) levothyroxine 50 mcg capsule 50 mcg PO DAILY 07/29/21 04/25/22 10/16/21 History metformin 500 mg tablet 1,000 mg PO BID 07/29/21 04/25/22 Unknown History hydrocodone 5 mg-acetaminophen 325 1 - 2 tab PO .Q4-6H pain 5 days 12/18/21 04/25/22 Unknown Rx mg tablet #40 tabs Allergies Allergy/AdvReac Type Severity Reaction Status Date / Time duloxetine [From Cymbalta] Allergy RASH Verified 04/16/22 10:31 [facility] Anesthesia Social History Smoking and tobacco status: never smoked Alcohol intake: current Female Reproductive History Date of last menstrual period: 04/15/22 Data Anesthesia Cardiac Studies: No Data to Display
[2022-05-03] VITALS (12 sets, daily range): BP systolic 119–167; BP diastolic 68–106; PULSE 74–88; RESP 12–22; TEMP 36.2–37.5; O2SAT 95–100
--- NOTE | 2022-05-03 | XR_ITS ---
WS: [id number] Lumbar spine, C-arm fluoroscopy, 05/03/2022 Clinical Data: Decompression L4-5; L5-S1 Comparison: None. Findings: Fracture Dr. Suarez performed a lumbar decompression at L4-L5 and L5-S1. XR/XR lumbar spine 1V [id number] Impression: Lumbar decompression.
--- NOTE | 2022-05-03 | SCC_ITS ---
Procedure done: 1. L3/4 laminectomy with partial facetectomies 2. L4/5 laminectomy with partial facetectomies 3. L5/S1 laminectomy with partial facetectomies 6.9 seconds of fluoroscopic guidance, for a cumulative dose of 13.8 mGy, was provided to Dr. Suarez by the radiology department. C-arm images of the lumbar spine were saved for the patient's permanent record. [facility]
[2022-05-03 09:10] LABS: OR HCG Qualitative Urine Negative (Negative)
[2022-05-03] MEDS: sodium chloride 0.9% 1,000 ML 30 ML IV (09:32)
[2022-05-03] MEDS: scopolamine 1.5 Patch 1 PATCH TRANSDERMA (09:40)
--- NOTE | 2022-05-03 09:55 | P.ANESUD_ITS ---
Pre-Anesthetic Update Pre-Anesthetic Assessment: Date of Surgery/Procedure: 05/03/22 Preop Chloe gnosis: Lumbar stenosis with left sided radiculopathy Proposed Procedure: Operation Date: 05/03/22 10:30 Proposed Procedures p Lumbar Spine Decompression L3/4-L5/S1 69230/90086/M51.27/M51.26 OPEN(Left) - Nitish H Daniela, DO Any changes to Pre-Anesthetic Assessment?: No Last Intake: Intake Last Liquid Date 05/02/22 Last Liquid Time 22:00 Last Solid Date 05/02/22 Last Solid Time 22:00 Vitals: Temperature 99.5 F 05/03/22 09:06 Temperature Source Temporal Artery S can 05/03/22 09:06 Pulse Rate 80 05/03/22 09:46 Pulse Rhythm 05/03/22 09:09 Pulse Strength 3+ Normal 05/03/22 09:09 Respiratory Rate 16 05/03/22 09:46 Blood Pressure 143/84 05/03/22 09:46 Blood Pressure Shagufta n 103 05/03/22 09:46 Pulse Oximetry 99 05/03/22 09:46 Oxygen Delivery Me thod 05/03/22 09:46 Exam: Pre-Anes Outpt Exam: alert, oriented x 3, clear to auscultation bilaterally and regular rate & rhythm Cardiac Studies: No Data to Display
--- NOTE | 2022-05-03 10:18 | W.PM.OPSUD ---
Surgery/Procedure H&P Update DATE OF PROCEDURE: May 03, 2022 DATE H&P PERFORMED: 04/16/22 H&P UPDATE INFORMATION: I have reviewed H&P completed within last 30 days, I have examined patient prior to procedure and No changes to prior documentation PREOP DIAGNOSIS: Lumbar stenosis with left sided radiculopathy PLANNED PROCEDURE: Operation Date: 05/03/22 10:30 Proposed Procedures p Lumbar Spine Decompression L3/4-L5/S1 36829/13301/M51.27/M51.26 OPEN(Left) - Nitish Suarez DO
[2022-05-03] MEDS: ceFAZolin 2,000 MG in sodium chloride 0.9% (plus) 50 ML 100 MG IV (11:09)
[2022-05-03] MEDS: ceFAZolin 1,000 MG in sodium chloride 0.9% (plus) 50 ML 100 MG IV (11:38)
[2022-05-03] MEDS: vancomycin 1,000 MG SDV 1000 MG XX (11:39)
--- NOTE | 2022-05-03 13:05 | PM.OP ---
Operative Report Date of procedure: May 03, 2022 Pre-op diagnosis: Preop Diagnosis Lumbar stenosis with left sided radiculopathy Post-op diagnosis: same Procedure done: 1. L3/4 laminectomy with partial facetectomies 2. L4/5 laminectomy with partial facetectomies 3. L5/S1 laminectomy with partial facetectomies Surgeon: Nitish Suarez Elevating Grader Operator: Patrick Echavarria Elevating Grader Operator: The surgical sales representative, Patrick Echavarria, PAC was needed for his expertise under the microscope. He was important and necessary throughout the procedure to complete in a safe and timely manner. He assisted with patient positioning prepping and draping tissue retraction suctioning of the operative field protection of the dural sac and tissue closure Estimated blood loss (mL): 20 Procedure: 1. L3/4 laminectomy with partial facetectomies 2. L4/5 laminectomy with partial facetectomies 3. L5/S1 laminectomy with partial facetectomies Patient is brought to the operative suite after undergoing anesthesia patient was placed in the prone position all areas impingement well-padded. Patient was prepped and draped normal sterile fashion. Skin incision made from L3 down S1. Dissection was made through the skin and soft tissues down to the thoracolumbar fascia. Thoracolumbar fascia was identified split with the Bovie subperiosteal dissection was made out from L3 to the L3-4 facets L4 down to the L4-5 facets and L5 out the L5-S1 facets retractors were placed. Microscope was brought in. Attention was brought first to the lamina of L3 high-speed bur Kerrison rongeurs and curettes were used to take down the lamina of L3 and then the medial aspect of facet joints at L3-4 were taken down. The L3 nerve was traced out bilaterally with a Robbins and the L4 nerve was traced around the L4 pedicles to ensure that the nerves were adequately decompressed. Extension was brought to the L4 lamina laminectomy was performed. Patient had a previous laminectomy site which was scarred down but teased off the dura. The medial aspect of facet joints were taken down with a high-speed bur and Kerrison rongeurs and curettes and then the L4 nerve was traced out the L4-5 foramen and the L5 nerve was traced around the L5 pedicle. Next tension was brought to the L5-S1 level. The L5 lamina was taken down with a high-speed bur and then the curved curettes and Kerrison rongeurs reducing. The scar tissue of the dura. Medial aspect surgery was taken down with a high-speed bur along with curved curettes Kerrison rongeurs. The L5 nerves. The L5-S1 foramen and the S1 nerve was traced around the S1 pedicle. Was irrigated and the wound was closed in layered fashion with 0 Vicryl to thoracolumbar fascia and soft tissues closed with 0 Vicryl 2-0 Vicryl and nylon for the skin. Sterile dressings applied patient was transferred to the PACU in stable condition.
[2022-05-03] MEDS: fentaNYL 50 mcg/mL INJ 2mL IVP (13:06)
--- NOTE | 2022-05-03 13:11 | SUR.PHASEI ---
patient awake and alert, asking when she can return to ops to see her . pt recently stated pain was at 10 in lower back, patient medicated per orders. will monitor for 15 minutes then will transport back to ops when ready.
--- NOTE | 2022-05-03 13:27 | ANE.PACU2 ---
Inpatient post-anesthesia follow up: Airway intact: Yes Vital signs: Temperature 97.6 F Pulse Rate 78 Respiratory Rate 18 Blood Pressure 131/75 Pulse Oximetry 98 Oxygen Delivery Me thod Room Air Oxygen Flow Rate Fraction of Inspir ed Oxygen Hydration adequate: Yes Nausea and vomiting: No Pain level: 6 Mental status: Baseline
--- NOTE | 2022-05-03 13:29 | SUR.PHASEI ---
patient taken to ops, report given to serafin. patient smiling and laughing on entering ops room. patient still stated pain was at 10. told her of the option of taking a pain pill and she was satisfied with that plan.
[2022-05-03] MEDS: HYDROcodone-acetaminophen 5-325 mg Tablet 1 TAB PO (13:58)
== END 2022-05-03 14:45 | disposition home or self-care (01) ==
PROVIDERS: Physician Assistant; Visit Provider Orthopaedic Surgery
PROC: (CPT 63005; principal; 2022-05-03 10:30)
DX: M48.061 Spinal stenosis, lumbar region without neurogenic claudication (principal); M54.16 Radiculopathy, lumbar region; E66.01 Morbid (severe) obesity due to excess calories; Z68.24 Body mass index [BMI] 24.0-24.9, adult; E28.2 Polycystic ovarian syndrome
CPT/HCPCS: 63047; 63048 ×2; 72020; 76000; 81025; 84703; J0690; J1100; J1885; J2250; J2405; J2704; J3010; J3370; J3490; J7030

== ENCOUNTER 2022-05-11 14:13 | Emergency (ER) | payer MEDICAID, SELFPAY ==
[2022-05-11 14:21] VITALS: BP 143/89; PULSE 97; RESP 15; TEMP 36.6; O2SAT 100; BMI 60.8
--- NOTE | 2022-05-11 14:59 | XRR_ITS ---
PROCEDURE INFORMATION: Exam: XR Lumbosacral Spine Exam date and time: 05/11/2022 3:47 PM Age: 26 years old Clinical indication: Low back pain; Prior surgery; Surgery date: <1 month; Surgery type: Lumbar diskectomy 10 days ago; Additional info: Wound infection TECHNIQUE: Imaging protocol: Radiologic exam of the lumbosacral spine. Views: 2 or 3 views. COMPARISON: OT XR lumbar spine 1V [id number] 05/03/2022 11:46 AM FINDINGS: L4 laminectomy is again noted. Mild degenerative changes are present at L4-L5 and L5-S1. No acute fracture. Straightening of the lumbar lordosis may be due to positioning or muscle spasm. XR/XR lumbar spine 2-3V* [id number] IMPRESSION: No acute finding.
--- NOTE | 2022-05-11 15:07 | W.ED.WOUNDLC ---
Documented by User: MARY Degroot 05/11/22 17:06 HPI - Wound/Laceration General: Chief Complaint: Wound/Laceration Stated Complaint: Infection in surgery incision Time Seen by Provider: 05/11/22 14:54 History of Present Illness: 26-year-old female comes in today with complaints of drainage from a surgical wound site and concern for wound infection. Patient appears nontoxic. Patient does report some nausea since starting antibiotics yesterday. Associated symptoms: Reports fever(s) (Reports 100.2) and nausea Review of Systems Const: Reports: fever(s) (Reports 100.2) Resp: Denies: dyspnea GI: Reports: nausea Skin/Breast: Reports: other (Draining surgical wound) PFSH ED PFSH: Social History Smoking and tobacco status: never smoked Alcohol intake: current Female Reproductive History: Date of last menstrual period: 04/15/22 Spontaneous abortions: No Physical Exam Const: COMMON NORMALS: alert HENMT: COMMON NORMALS: normocephalic HEAD & SCALP: normocephalic Neck/C-Spine: COMMON NORMALS: full ROM Resp: COMMON NORMALS: normal respiratory effort and clear to auscultation bilaterally AUSCULTATION: clear to auscultation bilaterally Cardio: COMMON NORMALS: regular rate RATE: regular rate Back/Pelvis: LUMBAR SPINE/LOWER BACK: Yes other soft tissue findings (Minimal redness at the surgical site, serosanguineous drainage) Extremity: COMMON NORMALS: normal to inspection Neuro: SENSORIUM/ORIENTATION: Yes alert Skin: WOUNDS: Yes surgical site Details: drainage Details: serosanguineous, margins Details: well approximated, no odor, sutures Details: in place and surrounding erythema (Minimal) Course Vital Signs: Vital signs: Vital Signs Temperature 97.8 F 05/11/22 17:15 Pulse Rate 98 05/11/22 17:15 Respiratory Rate 17 05/11/22 17:15 Blood Pressure 135/80 05/11/22 17:15 Pulse Oximetry 98 05/11/22 17:15 Oxygen Delivery Me thod 05/11/22 16:29 MDM - Wound/Laceration Medical Decision Making 26-year-old female comes in today for complaints of drainage from surgery site. Patient was seen yesterday and was believed it may be have a surgical wound infection. Today evaluation of surgical wound site and note minimal redness to the well approximated wound but a large amount of serosanguineous drainage is noted. Vital signs are normal. Differential diagnosis includes surgical wound infection, hematoma, seroma, abscess. Ultrasound of the area noted no significant fluid collection, x-ray of the lumbar spine was unremarkable as reviewed by radiologist. CBC was notable for some mild elevation in white blood cell count of 12,000. CMP was unremarkable. CRP was 60. Reviewed imaging and labs with Dr. Paez who recommended continuing doxycycline and follow-up with surgeon's office on Friday. Patient does have a follow-up appointment on Friday. Reviewed red flags such as high fever, inability to hold fluids down, or new concerns to return to the ER then. Lab Data : 05/11/22 15:13 05/11/22 15:13 Radiology Impressions Lumbar Spine X-Ray 05/11/22 14:59 IMPRESSION: No acute finding. Soft Tissue Ultrasound 05/11/22 15:11 IMPRESSION: No acute finding. No abscess is seen. Laboratory Results WBC 12.3 10^3/uL (4.0-10.0) H 05/11/22 15:13 RBC 4.57 10^6/uL (4.1-5.3) 05/11/22 15:13 Hgb 13.5 g/dL (11.5-15.3) 05/11/22 15:13 Hct 42.0 % (37.0-47.0) 05/11/22 15:13 MCV 91.9 fl (81-99) 05/11/22 15:13 MCH 29.5 pg (28.0-34.0) 05/11/22 15:13 MCHC 32.1 g/dL (30.0-36.0) 05/11/22 15:13 RDW 13.0 % (12.1-15.1) 05/11/22 15:13 Plt Count 315 10^3/cmm (130-400) 05/11/22 15:13 MPV 10.9 fL (7.4-10.4) H 05/11/22 15:13 Neut % (Auto) 74.7 % 05/11/22 15:13 Lymph % (Auto) 14.2 % 05/11/22 15:13 [place] % (Auto) 8.7 % 05/11/22 15:13 Eos % (Auto) 1.1 % 05/11/22 15:13 Baso % (Auto) 0.7 % 05/11/22 15:13 Neut # (Auto) 9.19 10^3/uL (1.8-7.7) H 05/11/22 15:13 Lymph # (Auto) 1.8 10^3/uL (0.8-4.8) 05/11/22 15:13 [place] # (Auto) 1.1 10^3/uL (0.2-0.9) H 05/11/22 15:13 Eos # (Auto) 0.1 10^3/uL (0.0-0.8) 05/11/22 15:13 Baso # (Auto) 0.1 10^3/uL (0.0-0.1) 05/11/22 15:13 Nucleated RBC % (auto) 0 % 05/11/22 15:13 Nucleated RBCs # 0.0 /100WBC 05/11/22 15:13 Sodium 137 mmol/L (136-145) 05/11/22 15:13 Potassium 4.0 mmol/L (3.5-5.1) 05/11/22 15:13 Chloride 101 mmol/L (98-107) 05/11/22 15:13 Carbon Dioxide 25 mmol/L (22-29) 05/11/22 15:13 Anion Gap 15.0 (5-19) 05/11/22 15:13 BUN 14 mg/dL (6-20) 05/11/22 15:13 Creatinine 0.8 mg/dL (0.5-0.9) 05/11/22 15:13 GFR Calculation 88.1 mL/min (90-130) L 05/11/22 15:13 Glucose 87 mg/dL (65-115) 05/11/22 15:13 Calculated Osmolality 284 mOsm/kg (285-295) L 05/11/22 15:13 Lactic Acid 0.9 mmol/L (0.5-2.2) 05/11/22 15:13 Calcium 9.4 mg/dL (8.5-10.5) 05/11/22 15:13 Total Bilirubin 0.4 mg/dL (0.15-1.2) 05/11/22 15:13 AST 13 U/L (0-32) 05/11/22 15:13 ALT 20 U/L (0-33) 05/11/22 15:13 Alkaline Phosphatase 116 U/L (35-105) H 05/11/22 15:13 C-Reactive Protein 60.2 mg/L (0.0-4.9) H 05/11/22 15:13 Total Protein 8.1 g/dL (6.6-8.7) 05/11/22 15:13 Albumin 3.9 g/dL (3.5-5.2) 05/11/22 15:13 Globulin 4.2 g/dL (1.3-4.6) 05/11/22 15:13 Discharge Plan Discharge Patient Disposition: Home Clinical Impression: Drainage from surgical wound Condition: Stable Prescriptions: New ondansetron 4 mg tablet,disintegrating 4 mg PO Q8H PRN (Reason: nausea and vomiting) Qty: 10 0RF No Action levothyroxine 50 mcg capsule 50 mcg PO DAILY metformin 500 mg tablet 1,000 mg PO BID doxycycline hyclate 100 mg tablet 100 mg PO BID 7 Days Qty: 14 0RF hydrocodone-acetaminophen 5-325 mg tablet 1 - 2 tab PO .Q4-6H 5 Days Qty: 40 0RF naproxen sodium [Aleve] 220 mg Tablet 880 mg PO PRN PRN (Reason: Pain) hydrocodone-acetaminophen 5-325 mg tablet 1 - 2 tab PO .Q4-6H Qty: 40 0RF Discharge Orders: Discharge ED (Routine); Ordered 05/11/22 Ordered By: Raleigh Constantino Discharge Diet: Usual diet Discharge Activity: Increase activity as tolerated Patient Instructions: Seroma (DC), Opioid Safety Activity Restrictions/Additional Instructions: Use large surgical pads to absorb drainage. Drink plenty of water and fluids. Continue antibiotic as directed. Return to ER for fever greater than 100.4, increasing redness and warmth around the site, foul drainage smell, or bright red blood. Follow-up with surgeons office on Friday. Coding Level of Care Code ED Psychological Science Professor for Chg Fwd Exam Comprehensive Documented by User: Chan Paez DO 05/14/22 05:53 HPI - Wound/Laceration General: Chief Complaint: Wound/Laceration Stated Complaint: Infection in surgery incision Time Seen by Provider: 05/11/22 14:54 PFSH ED PFSH: Social History Smoking and tobacco status: never smoked Alcohol intake: current Course Vital Signs: Vital signs: Vital Signs Temperature 97.8 F 05/11/22 17:15 Pulse Rate 98 05/11/22 17:15 Respiratory Rate 17 05/11/22 17:15 Blood Pressure 135/80 05/11/22 17:15 Pulse Oximetry 98 05/11/22 17:15 Oxygen Delivery Me thod 05/11/22 16:29 MDM - Wound/Laceration Medical Decision Making 26-year-old female comes in today for complaints of drainage from surgery site. Patient was seen yesterday and was believed it may be have a surgical wound infection. Today evaluation of surgical wound site and note minimal redness to the well approximated wound but a large amount of serosanguineous drainage is noted. Vital signs are normal. Differential diagnosis includes surgical wound infection, hematoma, seroma, abscess. Ultrasound of the area noted no significant fluid collection, x-ray of the lumbar spine was unremarkable as reviewed by radiologist. CBC was notable for some mild elevation in white blood cell count of 12,000. CMP was unremarkable. CRP was 60. Reviewed imaging and labs with Dr. Paez who recommended continuing doxycycline and follow-up with surgeon's office on Friday. Patient does have a follow-up appointment on Friday. Reviewed red flags such as high fever, inability to hold fluids down, or new concerns to return to the ER then. Chart reviewed and patient discussed with midlevel. Agree with assessment and plan. Lab Data : 05/11/22 15:13 05/11/22 15:13 Radiology Impressions Lumbar Spine X-Ray 05/11/22 14:59 IMPRESSION: No acute finding. Soft Tissue Ultrasound 05/11/22 15:11
--- NOTE | 2022-05-11 15:11 | USR_ITS ---
PROCEDURE INFORMATION: Exam: US Unlisted Ultrasound Procedure Exam date and time: 05/11/2022 3:59 PM Age: 26 years old Clinical indication: Pain: Pain and bleeding from surgical site; Prior surgery; Surgery date: 3-7 days post-operative; Surgery type: Lamectomy of spine; Patient HX: PT weighs 400 lb; Additional info: Surgical site, concern for abscess/seroma TECHNIQUE: Imaging protocol: Unlisted ultrasound procedure (eg, diagnostic, interventional). COMPARISON: No relevant prior studies available. FINDINGS: Ultrasound survey of the lower back was performed. No acute abnormality is seen. No localized fluid collection is demonstrated on the images provided US/US soft tissue/extremity [id number] IMPRESSION: No acute finding. No abscess is seen.
[2022-05-11 16:29] VITALS: BP 143/89; PULSE 97; RESP 15; TEMP 36.6; O2SAT 100
[2022-05-11 16:29] LABS: Basophils # 0.1 10^3/uL (0.0-0.1); Basophils % 0.7 %; Eosinophils # 0.1 10^3/uL (0.0-0.8); Eosinophils % 1.1 %; Hemoglobin 13.5 g/dL (11.5-15.3); Lymphocytes # 1.8 10^3/uL (0.8-4.8); Lymphocytes % 14.2 %; Mean Corpuscular HGB Conc 32.1 g/dL (30.0-36.0); Mean Corpuscular Hemoglobin 29.5 pg (28.0-34.0); Mean Corpuscular Volume 91.9 fl (81-99); Mean Platelet Volume 10.9 fL (7.4-10.4); Monocytes # 1.1 10^3/uL (0.2-0.9); Monocytes % 8.7 %; Neutrophils # 9.19 10^3/uL (1.8-7.7); Neutrophils % 74.7 %; Nucleated Red Blood Cells % 0 %; Platelet Count 315 10^3/cmm (130-400); Red Blood Count 4.57 10^6/uL (4.1-5.3); White Blood Count 12.3 10^3/uL (4.0-10.0)
[2022-05-11 16:42] LABS: Lactic Sepsis W/Reflex 0.9 mmol/L (0.5-2.2)
[2022-05-11 16:43] LABS: Alanine Aminotransferase 20 U/L (0-33); Albumin Level 3.9 g/dL (3.5-5.2); Alkaline Phosphatase 116 U/L (35-105); Aspartate Amino Transferase 13 U/L (0-32); Blood Urea Nitrogen 14 mg/dL (6-20); C Reactive Protein 60.2 mg/L (0.0-4.9); Calcium 9.4 mg/dL (8.5-10.5); Carbon Dioxide 25 mmol/L (22-29); Chloride 101 mmol/L (98-107); Globulin 4.2 g/dL (1.3-4.6); Glomerular Filtration Rate 88.1 mL/min (90-130); Glucose 87 mg/dL (65-115); Osmolality Calculated 284 mOsm/kg (285-295); Sodium 137 mmol/L (136-145); Total Bilirubin 0.4 mg/dL (0.15-1.2); Total Protein 8.1 g/dL (6.6-8.7)
[2022-05-11 17:15] VITALS: BP 135/80; PULSE 98; RESP 17; TEMP 36.6; O2SAT 98
== END 2022-05-11 17:16 | disposition home or self-care (01) ==
PROVIDERS: Emergency Provider Nurse Practitioner Family
DX: T81.89XA Other complications of procedures, not elsewhere classified, initial encounter (principal); Y83.8 Other surgical procedures as the cause of abnormal reaction of the patient, or of later complication, without mention of misadventure at the time of the procedure
CPT/HCPCS: 36415; 72100; 76882; 80053; 83605; 85025; 86140; 87040; 99284

== ENCOUNTER 2022-05-17 20:36 | Emergency (ER) | payer BC, MEDICAID, SELFPAY ==
[2022-05-17 20:57] VITALS: BP 142/86; PULSE 89; RESP 16; TEMP 36.3; O2SAT 98; BMI 60.7
[2022-05-17 21:44] VITALS: BP 144/81; PULSE 91; RESP 16; O2SAT 99
--- NOTE | 2022-05-17 21:58 | ED_ITS ---
Documented by User: MOISES Parrish 05/18/22 01:48 HPI - Wound/Laceration General: Chief Complaint: Wound/Laceration Stated Complaint: post back surgery incision's coming undone Time Seen by Provider: 05/17/22 21:08 History of Present Illness: Patient is in today for incision infection. She reports that she had spinal surgery with Dr. Suarez on 03 May. She reports that they did blood test and they kept her on the doxycycline with follow-up with Dr. Suarez the next week. She reports that she called Dr. Suarez yesterday to and they changed her to Keflex antibiotic. She does not feel like she has had a fever yesterday or today. She has been very nauseated but not vomiting. Associated symptoms: Reports fever(s) (Fever up until yesterday) and nausea; Denies vomiting Review of Systems Const: Reports: fever(s) (Fever up until yesterday) Card: Denies: chest pain or palpitations Resp: Denies: dyspnea GI: Reports: nausea; Denies: abdominal pain or vomiting : Denies: flank pain, difficulty voiding or dysuria Skin/Breast: Reports: other (Postsurgical incision gaping and draining) [facility] ED PFSH: Social History Smoking and tobacco status: never smoked Alcohol intake: current Female Reproductive History: Date of last menstrual period: 04/26/22 Spontaneous abortions: No Physical Exam Const: COMMON NORMALS: no acute distress, patient oriented x3 and alert NUTRITIONAL APPEARANCE: obese morbidly obese Resp: COMMON NORMALS: normal respiratory effort, No use of accessory muscles and clear to auscultation bilaterally AUSCULTATION: clear to auscultation bilaterally Cardio: COMMON NORMALS: regular rate, regular rhythm, S1 normal heart sound present, S2 normal heart sound present and No murmurs present (Cardio) RATE: regular rate RHYTHM: regular rhythm HEART SOUNDS: S1 normal heart sound present and S2 normal heart sound present Neuro: COMMON NORMALS: patient oriented x3 SENSORIUM/ORIENTATION: Yes alert Skin: NARRATIVE SKIN EXAM: Postsurgical incision and mid low back?sutures are gaping. Incision is dehisced. There is purulent drainage noted along with serosanguineous. Minimal surrounding erythema Course Vital Signs: Vital signs: Vital Signs Temperature 97.3 F L 05/17/22 20:57 Pulse Rate 91 05/18/22 01:06 Respiratory Rate 16 05/18/22 01:06 Blood Pressure 144/81 05/18/22 01:06 Pulse Oximetry 99 05/18/22 01:06 Oxygen Delivery Me thod 05/17/22 21:44 MDM - Wound/Laceration Medical Decision Making Patient is in for postsurgical wound infection. Patient has recently been started on Keflex after continuing to experience fever and signs of infection on doxycycline. Patient reports that she has not had fever since being on the Keflex. Her white blood cell count today is slightly lower than previous. I did go ahead and do a wound culture today. CT scan lumbar with contrast was completed and shows an 9.9 x 5.6 cm collection of fluid in the subcu fat perhaps reflecting the postsurgical fluid infection is not excluded. I discussed this case, at length, with Dr. Howell. Given that the patient's infection seems to be improving along with her systemic symptoms and that the wound is currently draining Dr. Howell agrees that I will send the patient home with same instructions to complete wet-to-dry packed dressings. Follow-up with Dr. Suarez next week. Return to the ER for any new or worsening symptoms including development of fever, sudden increased pain. Lab Data : 05/17/22 22:29 05/17/22 22:29 Radiology Impressions Lumbar Spine CT 05/17/22 23:21 IMPRESSION: 1. L4 and L5 laminectomy changes with a 9.9 by 5.6 cm collection of fluid in the subcutaneous fat overlying this area posteriorly perhaps reflecting postsurgical fluid, infection is not excluded. 2. Spleen suspected to be enlarged measuring up to at least 13 cm. Laboratory Results WBC 11.9 10^3/uL (4.0-10.0) H 05/17/22 22: RBC 4.79 10^6/uL (4.1-5.3) 05/17/22 22: Hgb 13.9 g/dL (11.5-15.3) 05/17/22 22: Hct 43.7 % (37.0-47.0) 05/17/22 22: MCV 91.2 fl (81-99) 05/17/22 22: MCH 29.0 pg (28.0-34.0) 05/17/22: MCHC 31.8 g/dL (30.0-36.0) 05/17/22: RDW 13.0 % (12.1-15.1) 05/17/22: Plt Count 366 10^3/cmm (130-400) 05/17/22: MPV 10.3 fL (7.4-10.4) 05/17/22: Neut % (Auto) 66.1 % 05/17/22: Lymph % (Auto) 23.2 % 05/17/22: [place] % (Auto) 7.7 % 05/17/22: Eos % (Auto) 1.8 % 05/17/22: Baso % (Auto) 0.7 % 05/17/22: Neut # (Auto) 7.89 10^3/uL (1.8-7.7) H 05/17/22: Lymph # (Auto) 2.8 10^3/uL (0.8-4.8) 05/17/22 22: [place] # (Auto) 0.9 10^3/uL (0.2-0.9) 05/17/22: Eos # (Auto) 0.2 10^3/uL (0.0-0.8) 05/17/22: Baso # (Auto) 0.1 10^3/uL (0.0-0.1) 05/17/22: Nucleated RBC % (auto) 0 % 05/17/22: Nucleated RBCs # 0.0 /100WBC 05/17/22 22: Sodium 141 mmol/L (136-145) 05/17/22 22: Potassium 4.5 mmol/L (3.5-5.1) 05/17/22: Chloride 104 mmol/L (98-107) 05/17/22 22: Carbon Dioxide 24 mmol/L (22-29) 05/17/22 22: Anion Gap 17.5 (5-19) 05/17/22 22: BUN 16 mg/dL (6-20) 05/17/22 22: Creatinine 0.8 mg/dL (0.5-0.9) 05/17/22 22:29 GFR Calculation 88.1 mL/min (90-130) L 05/17/22 22:29 Glucose 89 mg/dL (65-115) 05/17/22 22:29 Calculated Osmolality 293 mOsm/kg (285-295) 05/17/22 22:29 Calcium 9.8 mg/dL (8.5-10.5) 05/17/22 22:29 Total Bilirubin 0.2 mg/dL (0.15-1.2) 05/17/22 22:29 AST 16 U/L (0-32) 05/17/22 22:29 ALT 24 U/L (0-33) 05/17/22 22: Alkaline Phosphatase 118 U/L (35-105) H 05/17/22 22: Total Protein 8.5 g/dL (6.6-8.7) 05/17/22 22: Albumin 4.0 g/dL (3.5-5.2) 05/17/22 22: Globulin 4.5 g/dL (1.3-4.6) 05/17/22 22:29 Discharge Plan Discharge Patient Disposition: Home Clinical Impression: Surgical wound infection Condition: Stable Prescriptions: No Action levothyroxine 50 mcg capsule 50 mcg PO DAILY metformin 500 mg tablet 1,000 mg PO BID (DME) abdominal binder See Rx Instructions .Route .MEDSUPPLY Qty: 1 0RF Rx Instructions: As directed cephalexin 500 mg capsule 500 mg PO QID 7 Days Qty: 28 0RF doxycycline hyclate 100 mg tablet 100 mg PO BID 7 Days Qty: 14 0RF hydrocodone-acetaminophen 5-325 mg tablet 1 - 2 tab PO .Q4-6H 5 Days Qty: 40 0RF naproxen sodium [Aleve] 220 mg Tablet 880 mg PO PRN PRN (Reason: Pain) hydrocodone-acetaminophen 5-325 mg tablet 1 - 2 tab PO .Q4-6H Qty: 40 0RF ondansetron 4 mg tablet,disintegrating 4 mg PO Q8H PRN (Reason: nausea and vomiting) Qty: 10 0RF Discharge Orders: Discharge ED (Routine); Ordered 05/18/22 Ordered By: Pat Kelly Discharge Diet: Usual diet Activity Restrictions/Additional Instructions: Continue antibiotic as previously prescribed. Continue wet-to-dry packed dressings. Follow-up with Dr. Suarez on Friday. Return to the ER for any new or worsening symptoms including increased pain, return of fever. Coding Level of Care Code ED Reception Centre Manager for Chg Fwd Exam Expanded Problem Focused Documented by User: Johnathan Howell, 05/18/22 03:38 HPI - Wound/Laceration General: Chief Complaint: Wound/Laceration Stated Complaint: post back surgery incision's coming undone Time Seen by Provider: 05/17/22 21:08 [facility] ED PFSH: Social History Smoking and tobacco status: never smoked Alcohol intake: current Course Vital Signs: Vital signs: Vital Signs Temperature 97.3 F L 05/17/22 20:57 Pulse Rate 91 05/18/22 01:06 Respiratory Rate 16 05/18/22 01:06 Blood Pressure 144/81 05/18/22 01:06 Pulse Oximetry 99 05/18/22 01:06 Oxygen Delivery Me thod 05/17/22 21:44 MDM - Wound/Laceration Medical Decision Making Patient is in for postsurgical wound infection. Patient has recently been started on Keflex after continuing to experience fever and signs of infection on doxycycline. Patient reports that she has not had fever since being on the Keflex. Her white blood cell count today is slightly lower than previous. I di d go ahead and do a wound culture today. CT scan lumbar with contrast was completed and shows an 9.9 x 5.6 cm collection of fluid in the subcu fat perhaps reflecting the postsurgical fluid infection is not excluded. I discussed this case, at length, with Dr. Howell. Given that the patient's infect ion seems to be improving along with her systemic symptoms and that the wound is currently draining Dr. Howell agrees that I will send the patient home with same instructions to complete wet-to-dry packed dressings. Follow-up with Dr. Suarez next week. Return to the ER for any new or worsening symptoms including development of fever, sudden increased pain. This patient was originally seen by MARY Gusman.? I agree with her history, evaluation, and treatment. Lab Data : 05/17/22 22:05/17/22 22: Radiology Impressions Lumbar Spine CT 05/17/22 23:21 IMPRESSION: 1. L4 and L5 laminectomy changes with a 9.9 by 5.6 cm collection of fluid in the subcutaneous fat overlying this area posteriorly perhaps reflecting postsurgical fluid, infection is not excluded. 2. Spleen suspected to be enlarged measuring up to at least 13 cm. Laboratory Results WBC 11.9 10^3/uL (4.0-10.0) H 05/17/22: RBC 4.79 10^6/uL (4.1-5.3) 05/17/22: Hgb 13.9 g/dL (11.5-15.3) 05/17/22: Hct 43.7 % (37.0-47.0) 05/17/22: MCV 91.2 fl (81-99) 05/17/22: MCH 29.0 pg (28.0-34.0) 05/17/22: MCHC 31.8 g/dL (30.0-36.0) 05/17/22: RDW 13.0 % (12.1-15.1) 05/17/22: Plt Count 366 10^3/cmm (130-400) 05/17/22: MPV 10.3 fL (7.4-10.4) 05/17/22: Neut % (Auto) 66.1 % 05/17/22: Lymph % (Auto) 23.2 % 05/17/22: [place] % (Auto) 7.7 % 05/17/22: Eos % (Auto) 1.8 % 05/17/22: Baso % (Auto) 0.7 % 05/17/22: Neut # (Auto) 7.89 10^3/uL (1.8-7.7) H 05/17/22: Lymph # (Auto) 2.8 10^3/uL (0.8-4.8) 05/17/22 22: [place] # (Auto) 0.9 10^3/uL (0.2-0.9) 05/17/22 22: Eos # (Auto) 0.2 10^3/uL (0.0-0.8) 05/17/22 22: Baso # (Auto) 0.1 10^3/uL (0.0-0.1) 05/17/22: Nucleated RBC % (auto) 0 % 05/17/22: Nucleated RBCs # 0.0 /100WBC 05/17/22 22: Sodium 141 mmol/L (136-145) 05/17/22: Potassium 4.5 mmol/L (3.5-5.1) 05/17/22: Chloride 104 mmol/L (98-107) 05/17/22: Carbon Dioxide 24 mmol/L (22-29) 05/17/22: Anion Gap 17.5 (5-19) 05/17/22: BUN 16 mg/dL (6-20) 05/17/22: Creatinine 0.8 mg/dL (0.5-0.9) 05/17/22: GFR Calculation 88.1 mL/min (90-130) L 05/17/22: Glucose 89 mg/dL (65-115) 05/17/22: Calculated Osmolality 293 mOsm/kg (285-295) 05/17/22: Calcium 9.8 mg/dL (8.5-10.5) 05/17/22: Total Bilirubin 0.2 mg/dL (0.15-1.2) 05/17/22: AST 16 U/L (0-32) 05/17/22: ALT 24 U/L (0-33) 05/17/22: Alkaline Phosphatase 118 U/L (35-105) H 05/17/22 22: Total Protein 8.5 g/dL (6.6-8.7) 05/17/22 22: Albumin 4.0 g/dL (3.5-5.2) 05/17/22: Globulin 4.5 g/dL (1.3-4.6) 05/17/22 22:29 Discharge Plan Discharge Patient Disposition: Home Clinical Impression: Surgical wound infection Condition: Stable Prescriptions: No Action levothyroxine 50 mcg capsule 50 mcg PO DAILY metformin 500 mg tablet 1,000 mg PO BID (DME) abdominal binder See Rx Instructions .Route .MEDSUPPLY Qty: 1 0RF Rx Instructions: As directed cephalexin 500 mg capsule 500 mg PO QID 7 Days Qty: 28 0RF doxycycline hyclate 100 mg tablet 100 mg PO BID 7 Days Qty: 14 0RF hydrocodone-acetaminophen 5-325 mg tablet 1 - 2 tab PO .Q4-6H 5 Days Qty: 40 0RF naproxen sodium [Aleve] 220 mg Tablet 880 mg PO PRN PRN (Reason: Pain) hydrocodone-acetaminophen 5-325 mg tablet 1 - 2 tab PO .Q4-6H Qty: 40 0RF ondansetron 4 mg tablet,disintegrating 4 mg PO Q8H PRN (Reason: nausea and vomiting) Qty: 10 0RF Discharge Orders: Discharge ED (Routine); Ordered 05/18/22 Ordered By: Pat Kelly Discharge Diet: Usual diet Activity Restrictions/Additional Instructions: Continue antibiotic as previously prescribed. Continue wet-to-dry packed dressings. Follow-up with Dr. Suarez on Friday. Return to the ER for any new or worsening symptoms including increased pain, return of fever. Coding Level of Care Code ED Reception Centre Manager for Meera Fwd Exam Expanded Problem Focused
[2022-05-17 22:43] LABS: Basophils # 0.1 10^3/uL (0.0-0.1); Basophils % 0.7 %; Eosinophils # 0.2 10^3/uL (0.0-0.8); Eosinophils % 1.8 %; Hematocrit 43.7 % (37.0-47.0); Hemoglobin 13.9 g/dL (11.5-15.3); Lymphocytes # 2.8 10^3/uL (0.8-4.8); Lymphocytes % 23.2 %; Mean Corpuscular HGB Conc 31.8 g/dL (30.0-36.0); Mean Corpuscular Volume 91.2 fl (81-99); Mean Platelet Volume 10.3 fL (7.4-10.4); Monocytes # 0.9 10^3/uL (0.2-0.9); Monocytes % 7.7 %; Neutrophils # 7.89 10^3/uL (1.8-7.7); Neutrophils % 66.1 %; Nucleated Red Blood Cells % 0 %; Platelet Count 366 10^3/cmm (130-400); Red Blood Count 4.79 10^6/uL (4.1-5.3); White Blood Count 11.9 10^3/uL (4.0-10.0)
[2022-05-17 23:05] LABS: Alanine Aminotransferase 24 U/L (0-33); Alkaline Phosphatase 118 U/L (35-105); Anion Gap 17.5 (5-19); Aspartate Amino Transferase 16 U/L (0-32); Blood Urea Nitrogen 16 mg/dL (6-20); Calcium 9.8 mg/dL (8.5-10.5); Carbon Dioxide 24 mmol/L (22-29); Chloride 104 mmol/L (98-107); Globulin 4.5 g/dL (1.3-4.6); Glomerular Filtration Rate 88.1 mL/min (90-130); Glucose 89 mg/dL (65-115); Osmolality Calculated 293 mOsm/kg (285-295); Potassium 4.5 mmol/L (3.5-5.1); Sodium 141 mmol/L (136-145); Total Bilirubin 0.2 mg/dL (0.15-1.2); Total Protein 8.5 g/dL (6.6-8.7)
[2022-05-17] MEDS: ondansetron 2 mg/ML SDV 2 mL 4 MG IVP (23:15)
--- NOTE | 2022-05-17 23:21 | CTR_ITS ---
PROCEDURE INFORMATION: Exam: CT Lumbar Spine With Contrast Exam date and time: 05/17/2022 11:38 PM Age: 26 years old Clinical indication: Other: Drainage from incision site; Prior surgery; Surgery date: <1 month; Surgery type: L4-5, l5-s1 discectomy and decompress; Patient HX: PT weighs 400 #. 100 ml omni 350. Post op lumbar surgery 05/03/2022; Additional info: Post surgical wound infection TECHNIQUE: Imaging protocol: Computed tomography of the lumbar spine with contrast. Radiation optimization: All CT scans at this facility use at least one of these dose optimization techniques: automated exposure control; mA and/or kV adjustment per patient size (includes targeted exams where dose is matched to clinical indication); or iterative reconstruction. Contrast material: OMNI 350; Contrast volume: 100 ml; Contrast route: INTRAVENOUS (IV); COMPARISON: MR lumbar spine wo con* 10000 04/16/2022 7:37 AM RADIATION DOSE METRICS: Total DLP (mGy-cm): 1840.43 FINDINGS: Bones/joints: L4 and L5 laminectomy changes with a 9.9 by 5.6 cm collection of fluid in the subcutaneous fat overlying this area posteriorly perhaps reflecting postsurgical fluid, infection is not excluded. L1-L2: No significant disc protrusion. No severe spinal canal stenosis. No significant neural foraminal narrowing. L2-L3: No significant disc protrusion. No severe spinal canal stenosis. No significant neural foraminal narrowing. L3-L4: No significant disc protrusion. No severe spinal canal stenosis. No significant neural foraminal narrowing. L4-L5: No significant disc protrusion. No severe spinal canal stenosis. No significant neural foraminal narrowing. L5-S1: No significant disc protrusion. No severe spinal canal stenosis. No significant neural foraminal narrowing. Spleen: Spleen suspected to be enlarged measuring up to at least 13 cm. Soft tissues: Unremarkable. CT/CT lumbar spine w con [id number] IMPRESSION: 1. L4 and L5 laminectomy changes with a 9.9 by 5.6 cm collection of fluid in the subcutaneous fat overlying this area posteriorly perhaps reflecting postsurgical fluid, infection is not excluded. 2. Spleen suspected to be enlarged measuring up to at least 13 cm.
[2022-05-17] MEDS: iohexol 350 mg/mL 100 mL Btl IV (23:42)
[2022-05-18 01:06] VITALS: BP 144/81; PULSE 91; RESP 16; O2SAT 99
== END 2022-05-18 01:08 | disposition home or self-care (01) ==
PROVIDERS: Emergency Provider Nurse Practitioner Family
DX: T81.40XA Infection following a procedure, unspecified, initial encounter (principal); Y83.8 Other surgical procedures as the cause of abnormal reaction of the patient, or of later complication, without mention of misadventure at the time of the procedure
CPT/HCPCS: 72132; 80053; 85025; 87070; 87075; 87077; 87186; 87205; 96374; 99285; J2405; Q9967

== ENCOUNTER → 2022-07-25 11:10 | Outpatient (BNVA) | payer BC, MEDICAID, SELFPAY | PROVIDERS: Visit Provider Orthopaedic Surgery | DX: Z47.89 Encounter for other orthopedic aftercare (principal) | CPT/HCPCS: 73523 ==

== ENCOUNTER 2023-01-29 01:49 | Emergency (ER) | payer BC, MEDICAID, SELFPAY ==
[2023-01-29 01:57] VITALS: BP 165/96; PULSE 66; RESP 16; TEMP 36.8; O2SAT 100; BMI 63.1
--- NOTE | 2023-01-29 01:59 | USR_ITS ---
PROCEDURE INFORMATION: Exam: US Abdomen, Limited; Right Upper Quadrant Exam date and time: 01/29/2023 2:32 AM Age: 27 years old Clinical indication: Abdominal pain; Other: Ruq pain x 20-3 months. Normal tbili = 0.3, normal ast = 19, elevated alt = 38, elevated alkphos = 116, normal lipase = 16, neg hcg TECHNIQUE: Imaging protocol: Real time ultrasound of the abdomen with image documentation. Limited exam focused on the right upper quadrant. COMPARISON: CT lumbar spine w con [id number] 05/17/2022 11:38 PM FINDINGS: Limitations: Evaluation limited by patient body habitus. Liver: Hepatomegaly, with liver measuring at least 18 cm. Questionable increased echogenicity within the liver, possibly hepatic steatosis. No discrete hepatic lesion identified. Gallbladder: Multiple shadowing gallstones. Mild gallbladder wall thickening, measuring up to 5 mm, with a reportedly positive sonographic Phipps's sign. Biliary ducts: No significant biliary dilatation, with CBD measuring 5-6 mm. Pancreas: Visualized portions of the pancreas are normal. Right kidney: Right kidney measures 10.9 x 5.0 x 4.9 cm. No hydronephrosis. Questionable 8 x 11 mm echogenic focus in the inferior pole of the right kidney. Other findings: Normal hepatopetal flow within the main portal vein. US/US gall bladder [id number] IMPRESSION: 1. Evaluation limited by patient body habitus. 2. Multiple shadowing gallstones. 3. Mild gallbladder wall thickening, measuring up to 5 mm, with a reportedly positive sonographic Phipps's sign. Correlate for possible acute cholecystitis. 4. No significant biliary dilatation, with CBD measuring 5-6 mm. 5. Hepatomegaly, with liver measuring at least 18 cm. 6. Questionable increased echogenicity within the liver, possibly hepatic steatosis. 7. Questionable 8 x 11 mm echogenic focus in the inferior pole of the right kidney. Could be a small nonobstructive calculus, but difficult to visualize well due to patient body habitus.
--- NOTE | 2023-01-29 02:00 | ED_ITS ---
HPI - Abdominal Pain General: Chief Complaint: Abdominal Pain Stated Complaint: abdomen pain Time Seen by Provider: 01/29/23 01:57 Source: patient Mode of arrival: ambulatory Limitations: no limitations History of Present Illness: 27-year-old female states she been having upper abdominal pain for the last 2 to 3 months. States its been worse over the last week she states she ate roughly 4 hours ago and started having severe pain in her right upper quadrant with nausea. States the pain is since resolved over the last 30 minutes she is currently completely pain-free she denies any fevers does have worsening pain typically when she eats denies any diarrhea or constipation Associated Symptoms: Reports nausea; Denies chills, diarrhea, fever(s) and vomiting Review of Systems Const: Denies: fever(s), chills, body aches or change in appetite Eyes: Denies: eye discomfort ENMT: Denies: throat pain or dental pain Card: Denies: chest pain Resp: Denies: dyspnea GI: Reports: abdominal pain and nausea; Denies: vomiting or diarrhea Musc: Denies: neck pain or back pain Skin/Breast: Denies: rash Neuro: Denies: headache(s) PFSH ED PFSH: Surgical History Hx of decompressive lumbar laminectomy Social History Smoking and tobacco status: never smoked Alcohol intake: current Substance/Drug Use: never Female Reproductive History: Spontaneous abortions: No Physical Exam Const: COMMON NORMALS: no acute distress, patient oriented x3 and healthy a ppearing HENMT: COMMON NORMALS: normocephalic and atraumatic HEAD & SCALP: normocephalic and atraumatic Neck/C-Spine: COMMON NORMALS: full ROM and supple Chest: COMMONS NORMALS: normal inspection of the chest and normal palpation of entire chest wall Resp: COMMON NORMALS: normal respiratory effort, No retractions, No use of accessory muscles and clear to auscultation bilaterally AUSCULTATION: clear to auscultation bilaterally Cardio: COMMON NORMALS: regular rate, regular rhythm and No murmurs present (Cardio) RATE: regular rate RHYTHM: regular rhythm GI: COMMON NORMALS: Normal to inspection, nondistended, normoactive bowel sounds present, Soft to palpation, non-tender and no masses PALPATION: Yes Soft to palpation Extremity: COMMON NORMALS: normal to inspection and full ROM Neuro: COMMON NORMALS: patient oriented x3, moves all extremities and no focal motor deficits Psych: COMMON NORMALS: mental status grossly normal, Normal thought process present and cooperative THOUGHT PROCESS: Normal thought process present Skin: COMMON NORMALS: no rashes or lesions noted and no wounds GENERAL SKIN EXAM: no rashes or lesions noted Course Vital Signs: Vital signs: Vital Signs Temperature 98.2 F 01/29/23 01:57 Pulse Rate 72 01/29/23 03:00 Respiratory Rate 16 01/29/23 01:57 Blood Pressure 140/77 01/29/23 03:00 Pulse Oximetry 99 01/29/23 03:00 Oxygen Delivery Me thod Room Air 01/29/23 03:00 MDM - Abdominal Pain Medical Decision Making Patient presents here with abdominal pain likely from biliary colic she has no signs of cholecystitis her pain is improved her exam here at discharge is benign we will start her on Cipro along with pain meds we will get her follow-up with surgery she is return if worsening. Medical Records I reviewed the patient's medical records. Lab Data I reviewed the patient's lab results. 01/29/23 02:21 01/29/23 02:21 Labs/Radiology: Laboratory Results WBC 7.6 10^3/uL (4.0-10.0) 01/29/23 02:21 RBC 4.67 10^6/uL (4.1-5.3) 01/29/23 02:21 Hgb 13.6 g/dL (11.5-15.3) 01/29/23 02:21 Hct 42.1 % (37.0-47.0) 01/29/23 02:21 MCV 90.1 fl (81-99) 01/29/23 02:21 MCH 29.1 pg (28.0-34.0) 01/29/23 02:21 MCHC 32.3 g/dL (30.0-36.0) 01/29/23 02:21 RDW 13.6 % (12.1-15.1) 01/29/23 02:21 Plt Count 241 10^3/cmm (130-400) 01/29/23 02:21 MPV 10.6 fL (7.4-10.4) H 01/29/23 02:21 Neut % (Auto) 62.2 % 01/29/23 02:21 Lymph % (Auto) 24.6 % 01/29/23 02:21 [place] % (Auto) 10.4 % 01/29/23 02:21 Eos % (Auto) 1.7 % 01/29/23 02:21 Baso % (Auto) 0.8 % 01/29/23 02:21 Neut # (Auto) 4.73 10^3/uL (1.8-7.7) 01/29/23 02:21 Lymph # (Auto) 1.9 10^3/uL (0.8-4.8) 01/29/23 02:21 [place] # (Auto) 0.8 10^3/uL (0.2-0.9) 01/29/23 02:21 Eos # (Auto) 0.1 10^3/uL (0.0-0.8) 01/29/23 02:21 Baso # (Auto) 0.1 10^3/uL (0.0-0.1) 01/29/23 02:21 Nucleated RBC % (auto) 0 % 01/29/23 02:21 Nucleated RBCs # 0.0 /100WBC 01/29/23 02:21 Sodium 137 mmol/L (136-145) 01/29/23 02:21 Potassium 4.3 mmol/L (3.5-5.1) 01/29/23 02:21 Chloride 101 mmol/L (98-107) 01/29/23 02:21 Carbon Dioxide 27 mmol/L (22-29) 01/29/23 02:21 Anion Gap 13.3 (5-19) 01/29/23 02:21 BUN 17 mg/dL (6-20) 01/29/23 02:21 Creatinine 0.8 mg/dL (0.5-0.9) 01/29/23 02:21 GFR Calculation 87.4 mL/min (90-130) L 01/29/23 02:21 Glucose 92 mg/dL (65-115) 01/29/23 02:21 Calculated Osmolality 285 mOsm/kg (285-295) 01/29/23 02:21 Calcium 9.5 mg/dL (8.5-10.5) 01/29/23 02:21 Total Bilirubin 0.3 mg/dL (0.15-1.2) 01/29/23 02:21 AST 19 U/L (0-32) 01/29/23 02:21 ALT 38 U/L (0-33) H 01/29/23 02:21 Alkaline Phosphatase 116 U/L (35-105) H 01/29/23 02:21 Total Protein 7.6 g/dL (6.6-8.7) 01/29/23 02:21 Albumin 4.1 g/dL (3.5-5.2) 01/29/23 02:21 Globulin 3.5 g/dL (1.3-4.6) 01/29/23 02:21 Lipase 16 U/L (13-60) 01/29/23 02:21 HCG, Qual Negative (Negative) 01/29/23 02:21 Urine Color Yellow (Yellow) 01/29/23 02:13 Urine Appearance Clear (CLEAR) 01/29/23 02:13 Urine pH 6 (5-7) 01/29/23 02:13 Ur Specific [place] 1.020 (1.005-1.030) 01/29/23 02:13 Urine Protein Neg (Negative) 01/29/23 02:13 Urine Glucose (UA) Norm (Normal) 01/29/23 02:13 Urine Ketones Negative (Negative) 01/29/23 02:13 Urine Blood Neg (Negative) 01/29/23 02:13 Urine Nitrate Negative (Negative) 01/29/23 02:13 Urine Bilirubin Neg (Negative) 01/29/23 02:13 Urine Urobilinogen Neg mg/dL (Negative) 01/29/23 02:13 Ur Leukocyte Esterase Negative (Negative) 01/29/23 02:13 Discharge Plan Discharge Patient Disposition: Home Clinical Impression: Cholelithiasis, Biliary colic Condition: Stable Prescriptions: New hydrocodone-acetaminophen 5-325 mg tablet 1 tab PO Q6H PRN (Reason: pain) Qty: 14 0RF ondansetron 4 mg tablet,disintegrating 4 mg PO Q6H PRN (Reason: nausea and vomiting) Qty: 14 0RF Cipro 500 mg tablet 500 mg PO BID Qty: 14 0RF No Action levothyroxine 50 mcg capsule 50 mcg PO DAILY metformin 500 mg tablet 1,000 mg PO BID (DME) abdominal binder See Rx Instructions .Route .MEDSUPPLY Qty: 1 0RF Rx Instructions: As directed cephalexin 500 mg capsule 500 mg PO QID 7 Days Qty: 28 0RF hydrocodone-acetaminophen 5-325 mg tablet 1 - 2 tab PO .Q4-6H 5 Days Qty: 40 0RF doxycycline hyclate 100 mg tablet 100 mg PO BID 7 Days Qty: 14 0RF (DME) OPSITE Post-Op dressing See Rx Instructions .Route .MEDSUPPLY Qty: 1 1RF Rx Instructions: As directed (DME) packing strip See Rx Instructions .Route .MEDSUPPLY Qty: 1 2RF Rx Instructions: As directed (DME) sterile applicator sticks See Rx Instructions .Route .MEDSUPPLY Qty: 1 1RF Rx Instructions: As directed levofloxacin 500 mg tablet 500 mg PO DAILY Qty: 7 0RF hydrocodone-acetaminophen 5-325 mg tablet 1 - 2 tab PO .Q4-6H PRN (Reason: pain) 7 Days Qty: 40 0RF naproxen sodium [Aleve] 220 mg Tablet 880 mg PO PRN PRN (Reason: Pain) ondansetron 4 mg tablet,disintegrating 4 mg PO Q8H PRN (Reason: nausea and vomiting) Qty: 10 0RF Discharge Orders: Discharge ED (Routine); Ordered 01/29/23 Ordered By: Jackie Blackman Referrals: Daniel Stratton DO [Physician] - 1-3 days Discharge Diet: Advance as tolerated Discharge Activity: Resume usual activity Patient Instructions: Abdominal Pain (ED), Opioid Safety, Pain Management Coding Level of Care Code ED Recovery Coach for Meera Rasheed
[2023-01-29 02:20] LABS: Add Urine Microscopic? NO; Charge for UA Resulting for Rev
[2023-01-29 02:23] LABS: Bilirubin Urine Neg (Negative); Blood Urine Neg (Negative); Glucose Urine UA Norm (Normal); Ketones Urine Negative (Negative); Leukocyte Esterase Urine Negative (Negative); Nitrate Urine Negative (Negative); Protein Urine Neg (Negative); Urine Appearance Clear (CLEAR); Urine Color Yellow (Yellow); Urobilinogen Urine Neg (Negative); pH Urine 6 (5-7)
[2023-01-29 02:30] VITALS: BP 146/93; PULSE 71; O2SAT 100
[2023-01-29 02:32] LABS: Basophils # 0.1 10^3/uL (0.0-0.1); Basophils % 0.8 %; Eosinophils # 0.1 10^3/uL (0.0-0.8); Eosinophils % 1.7 %; Hematocrit 42.1 % (37.0-47.0); Hemoglobin 13.6 g/dL (11.5-15.3); Lymphocytes # 1.9 10^3/uL (0.8-4.8); Lymphocytes % 24.6 %; Mean Corpuscular HGB Conc 32.3 g/dL (30.0-36.0); Mean Corpuscular Hemoglobin 29.1 pg (28.0-34.0); Mean Corpuscular Volume 90.1 fl (81-99); Mean Platelet Volume 10.6 fL (7.4-10.4); Monocytes # 0.8 10^3/uL (0.2-0.9); Monocytes % 10.4 %; Neutrophils # 4.73 10^3/uL (1.8-7.7); Neutrophils % 62.2 %; Nucleated Red Blood Cells % 0 %; Platelet Count 241 10^3/cmm (130-400); Red Blood Count 4.67 10^6/uL (4.1-5.3); Red Cell Distribution Width 13.6 % (12.1-15.1); White Blood Count 7.6 10^3/uL (4.0-10.0)
[2023-01-29 02:48] LABS: Alanine Aminotransferase 38 U/L (0-33); Albumin Level 4.1 g/dL (3.5-5.2); Alkaline Phosphatase 116 U/L (35-105); Anion Gap 13.3 (5-19); Aspartate Amino Transferase 19 U/L (0-32); Blood Urea Nitrogen 17 mg/dL (6-20); Calcium 9.5 mg/dL (8.5-10.5); Carbon Dioxide 27 mmol/L (22-29); Chloride 101 mmol/L (98-107); Globulin 3.5 g/dL (1.3-4.6); Glomerular Filtration Rate 87.4 mL/min (90-130); Glucose 92 mg/dL (65-115); Lipase 16 U/L (13-60); Osmolality Calculated 285 mOsm/kg (285-295); Potassium 4.3 mmol/L (3.5-5.1); Sodium 137 mmol/L (136-145); Total Bilirubin 0.3 mg/dL (0.15-1.2); Total Protein 7.6 g/dL (6.6-8.7)
[2023-01-29 02:49] LABS: HCG, Serum Qual Negative (Negative)
[2023-01-29 03:00] VITALS: BP 140/77; PULSE 72; O2SAT 99
[2023-01-29 03:25] VITALS: BP 145/97; PULSE 72; RESP 20; O2SAT 97
--- NOTE | 2023-01-29 08:46 | DCPLANNER ---
Addendum entered by Yani Yeung 02/13/23 07:00: Patient had a follow up appointment scheduled with general surgery - patient did attend appointment Addendum entered by Yani Yeung 02/05/23 11:35: Patient has a follow up appointment scheduled for Tuesday, February 07, 2023 at 11:[address] Stratton at general surgery. Original Note: cath lab manager had message to schedule a follow up appointment for patient with general surgery. cath lab manager sent patients information to the front office staff at general surgery. Patients information will be printed and reviewed. Clinic will call patient with appointment information.
--- NOTE | 2023-01-29 09:55 | DCPLANNER ---
Addendum entered by Yani Yueng 01/29/23 10:17: Patient called bilingual case manager back, declines at this time. Original Note: diabetes territory manager called patient due to no primary care physician - unable to speak with patient at this time, a voicemail was left for patient to return case manager phone call.
== END 2023-01-29 03:27 | disposition home or self-care (01) ==
PROVIDERS: Emergency Provider Emergency Medicine
DX: K80.70 Calculus of gallbladder and bile duct without cholecystitis without obstruction (principal)
CPT/HCPCS: 36415; 76705; 80053; 81003; 83690; 84703; 85025; 99284

== ENCOUNTER 2023-02-07 10:40 | Emergency (ER) | payer BC, MEDICAID, SELFPAY ==
[2023-02-07 10:53] VITALS: BP 154/84; PULSE 74; RESP 16; TEMP 36.6; O2SAT 100; BMI 63.1
--- NOTE | 2023-02-07 11:54 | US_ITS ---
WS: [id number] RIGHT UPPER QUADRANT ULTRASOUND HISTORY: Right upper quadrant abdominal pain, nausea COMPARISON: 01/29/2023 RIGHT upper quadrant ultrasound has moderately compromised by patient's body habitus as indicated on the prior exam also. Liver: 19.4 cm in length. Enlarged liver with hepatic steatosis. Coarse echotexture. No bile duct dil atation. Portal Vein: Normal hepatopetal flow with monophasic waveform. Gallbladder: Slightly contracted. Numerous stones are present within the gallbladder. Gallbladder wal l is measuring 4.7 mm which is slightly enlarged. No pericholecystic fluid. Cannot exclude a stone wi thin the neck of the gallbladder. CBD: 0.4 cm Pancreas: Obscured. Right kidney: 10.8 cm in length. Normal size and echogenicity. No hydronephrosis or mass. Aorta and IVC: Unremarkable abdominal aorta and IVC. No ascites. US/US gall bladder [id number] IMPRESSION: 1. Cholelithiasis in a mildly contracted gallbladder. No bile duct dilatation. 2. Entire exam is compromised by patient's body habitus.
--- NOTE | 2023-02-07 11:55 | ED_ITS ---
HPI - Abdominal Pain General: Chief Complaint: Abdominal Pain Stated Complaint: gallstones, supposed to have surgery soon Time Seen by Provider: 02/07/23 11:47 History of Present Illness: Patient is a 27-year-old female who comes to the ED with abdominal pain. Patient was seen here in the ED for same symptoms back on January 29 and was diagnosed with biliary colic and set up with appointment with Dr. Stratton the general surgeon for follow-up. Patient had an appointment to see Dr. Stratton today but Dr. Stratton and to cancel it because he had an emergency surgery to perform. Patient told nurse about her symptoms of abdominal pain and they told her to come here to the ED to be evaluated. Patient says she did get her appointment rescheduled with Dr. Stratton for early next week. Patient says for the past 2 to 3 weeks she has had 4 episodes of this right upper quadrant ab dominal pain nausea and vomiting. Today at about 3 AM she woke up and was having right upper quadrant abdominal pain. She also endorses having nausea and has been dry heaving. She has not had anything to eat or drink since symptoms started. She rates her pain currently a 7 out of 10 and she says the pain radiates to her back and up into her right shoulder. Denies any fevers, chills, bladder or bowel symptoms. Associated Symptoms: Reports nausea and vomiting; Denies chills, constipation, diarrhea, dysuria, fever(s), hematochezia and hematuria Review of Systems Const: Denies: fever(s), chills or fatigue Eyes: Denies: change in vision or eye discomfort ENMT: Denies: throat pain, odynophagia, nasal discharge or nasal congestion Card: Denies: chest pain, palpitations, edema, swelling of feet/ankles, dyspnea on exertion or orthopnea Resp: Denies: dyspnea, productive cough or non-productive cough GI: Reports: abdominal pain, nausea and vomiting; Denies: diarrhea, constipation or hematochezia : Denies: flank pain, dysuria or hematuria Musc: Denies: neck pain, back pain or extremity swelling Skin/Breast: Denies: rash or new lesions Neuro: Denies: headache(s), numbness in extremities or weakness in extremities PFS ED PFSH: Surgical History Hx of decompressive lumbar laminectomy Social History Smoking and tobacco status: never smoked Alcohol intake: current Substance/Drug Use: never Female Reproductive History: Spontaneous abortions: No Physical Exam Const: COMMON NORMALS: patient oriented x3 HENMT: COMMON NORMALS: normocephalic HEAD & SCALP: normocephalic MOUTH: Normal oral and palatal mucosa present THROAT: posterior oropharynx normal and uvula midline Neck/C-Spine: COMMON NORMALS: supple GENERAL: Yes normal visual inspection Resp: COMMON NORMALS: normal respiratory effort, No retractions, No use of accessory muscles and clear to auscultation bilaterally AUSCULTATION: clear to auscultation bilaterally Cardio: COMMON NORMALS: regular rate, regular rhythm, S1 normal heart sound present, S2 normal heart sound present, No gallops present (Cardio), No clicks present (Cardio), No murmurs present (Cardio) and Peripheral pulses 2+ throughout RATE: regular rate RHYTHM: regular rhythm HEART SOUNDS: S1 normal heart sound present and S2 normal heart sound present PERIPHERAL PULSES: Peripheral pulses 2+ throughout GI: COMMON NORMALS: Normal to inspection, nondistended, normoactive bowel sounds present, Soft to palpation and no masses PALPATION: Yes Soft to palpation and Yes Tenderness to palpation present (GI) Details: RUQ : COMMON NORMALS: Yes no CVA tenderness BLADDER/KIDNEY EXAM: Yes no CVA tenderness Back/Pelvis: COMMON NORMALS: no CVA tenderness Extremity: COMMON NORMALS: normal to inspection Neuro: COMMON NORMALS: patient oriented x3 GAIT: Yes Normal gait present Skin: GENERAL SKIN EXAM: dry skin Course Vital Signs: Vital signs: Vital Signs Temperature 97.9 F 02/07/23 10:53 Pulse Rate 103 H 02/07/23 13:56 Respiratory Rate 16 02/07/23 13:56 Blood Pressure 131/02 02/07/23 13:56 Pulse Oximetry 100 02/07/23 13:56 Oxygen Delivery Me thod Room Air 02/07/23 13:22 MDM - Abdominal Pain Medical Decision Making Patient is a 27-year-old female who comes to the ED with abdominal pain. Patient was seen here in the ED for same symptoms back on January 29 and was diagnosed with biliary colic and set up with appointment with Dr. Stratton the [facility] surgeon for follow-up. Patient had an appointment to see Dr. Stratton today but Dr. Stratton and to cancel it because he had an emergency surgery to perform. Patient told nurse about her symptoms of abdominal pain and they told her to come here to the ED to be evaluated. Patient says she did get her appointment rescheduled with Dr. Stratton for early next week. Patient says for the past 2 to 3 weeks she has had 4 episodes of this right upper quadrant abdominal pain nausea and vomiting. Today at about 3 AM she woke up and was having right upper quadrant abdominal pain. She also endorses having nausea and has been dry heaving. She has not had anything to eat or drink since symptoms started. She rates her pain currently a 7 out of 10 and she says the pain radiates to her back and up into her right shoulder. Denies any fevers, chills, bladder or bowel symptoms. Vitals are stable. Patient appears nontoxic in no acute distress or pain. She has some right upper quadrant abdominal tenderness but rest of exam is benign. White blood cell count of 7 and the rest of CBC and CMP are unremarkable. T. bili was normal at 0.4. hCG negative and lipase was normal. Ultrasound gallbladder shows cholelithiasis but no signs of cholecystitis and bile duct was normal. Patient was given IV fluids and nausea meds and her symptoms improved. She is able to tolerate p.o. fluids here in the ED. Patient diagnosed with cholelithiasis and she has an appointment with general surgery early next week. Return to ED precautions given. Patient still has hydrocodone and nausea meds at home to take to help with symptoms. Patient understood and agreed with plan. Lab Data I reviewed the patient's lab results. 02/07/23 11:56 02/07/23 11:56 Labs/Radiology: Radiology Impressions Gallbladder Ultrasound 02/07/23 11:54 IMPRESSION: 1. Cholelithiasis in a mildly contracted gallbladder. No bile duct dilatation. 2. Entire exam is compromised by patient's body habitus. Laboratory Results WBC 7.0 10^3/uL (4.0-10.0) 02/07/23 11:56 RBC 4.96 10^6/uL (4.1-5.3) 02/07/23 11:56 Hgb 14.6 g/dL (11.5-15.3) 07/21/23 11:56 Hct 45.3 % (37.0-47.0) 02/07/23 11:56 MCV 91.3 fl (81-99) 02/07/23 11:56 MCH 29.4 pg (28.0-34.0) 02/07/23 11:56 MCHC 32.2 g/dL (30.0-36.0) 02/07/23 11:56 RDW 13.6 % (12.1-15.1) 02/07/23 11:56 Plt Count 213 10^3/cmm (130-400) 02/07/23 11:56 MPV 10.9 fL (7.4-10.4) H 02/07/23 11:56 Neut % (Auto) 66.1 % 02/07/23 11:56 Lymph % (Auto) 21.3 % 02/07/23 11:56 Mccracken % (Auto) 9.6 % 02/07/23 11:56 Eos % (Auto) 1.6 % 02/07/23 11:56 Baso % (Auto) 1.0 % 02/07/23 11:56 Neut # (Auto) 4.64 10^3/uL (1.8-7.7) 02/07/23 11:56 Lymph # (Auto) 1.5 10^3/uL (0.8-4.8) 02/07/23 11:56 Mccracken # (Auto) 0.7 10^3/uL (0.2-0.9) 02/07/23 11:56 Eos # (Auto) 0.1 10^3/uL (0.0-0.8) 02/07/23 11:56 Baso # (Auto) 0.1 10^3/uL (0.0-0.1) 02/07/23 11:56 Nucleated RBC % (auto) 0 % 02/07/23 11:56 Nucleated RBCs # 0.0 /100WBC 02/07/23 11:56 Sodium 137 mmol/L (136-145) 02/07/23 11:56 Potassium 4.6 mmol/L (3.5-5.1) 02/07/23 11:56 Chloride 104 mmol/L (98-107) 02/07/23 11:56 Carbon Dioxide 23 mmol/L (22-29) 02/07/23 11:56 Anion Gap 14.6 (5-19) 02/07/23 11:56 BUN 12 mg/dL (6-20) 02/07/23 11:56 Creatinine 0.7 mg/dL (0.5-0.9) 02/07/23 11:56 GFR Calculation 102.0 mL/min (90-130) 02/07/23 11:56 Glucose 92 mg/dL (65-115) 02/07/23 11:56 Calculated Osmolality 283 mOsm/kg (285-295) L 02/07/23 11:56 Calcium 9.2 mg/dL (8.5-10.5) 02/07/23 11:56 Total Bilirubin 0.4 mg/dL (0.15-1.2) 02/07/23 11:56 AST 20 U/L (0-32) 02/07/23 11:56 ALT 40 U/L (0-33) H 02/07/23 11:56 Alkaline Phosphatase 120 U/L (35-105) H 02/07/23 11:56 Total Protein 7.7 g/dL (6.6-8.7) 02/07/23 11:56 Albumin 4.1 g/dL (3.5-5.2) 02/07/23 11:56 Globulin 3.6 g/dL (1.3-4.6) 02/07/23 11:56 Lipase 15 U/L (13-60) 02/07/23 11:56 HCG, Qual Negative (Negative) 02/07/23 11:56 Discharge Plan Discharge Patient Disposition: Home Clinical Impression: Cholelithiasis Condition: Stable Prescriptions: No Action (DME) abdominal binder See Rx Instructions .Route .MEDSUPPLY Qty: 1 0RF Rx Instructions: As directed (DME) OPSITE Post-Op dressing See Rx Instructions .Route .MEDSUPPLY Qty: 1 1RF Rx Instructions: As directed (DME) packing strip See Rx Instructions .Route .MEDSUPPLY Qty: 1 2RF Rx Instructions: As directed (DME) sterile applicator sticks See Rx Instructions .Route .MEDSUPPLY Qty: 1 1RF Rx Instructions: As directed naproxen sodium [Aleve] 220 mg Tablet 1,100 mg PO DAILY PRN (Reason: Migraine Headache) hydrocodone-acetaminophen 5-325 mg tablet 1 tab PO Q6H PRN (Reason: pain) Qty: 14 0RF ondansetron 4 mg tablet,disintegrating 4 mg PO Q6H PRN (Reason: nausea and vomiting) Qty: 14 0RF ciprofloxacin HCl [Cipro] 500 mg tablet 500 mg PO BID Qty: 14 0RF Rx Instructions: not started as of 02/07/23 tizanidine 4 mg tablet 4 mg PO .TWICE A WEEK Discharge Orders: Discharge ED (Routine); Ordered 02/07/23 Ordered By: Edwardo Gautam Discharge Diet: Advance as tolerated and Clear Liquid Discharge Activity: Increase activity as tolerated Patient Instructions: Gallstones (ED) Activity Restrictions/Additional Instructions: Follow-up with general surgeon Dr. Stratton at your next scheduled appointment. Clear liquid diet for the next 12 to 24 hours and slowly advance diet as tolerated. Take your previously prescribed Zofran and hydrocodone to help with symptoms. Return to the ER or your medical provider if condition worsens. Please read and understand discharge instructions. Thank you for choosing [facility] for your healthcare needs today. Please realize this is an emergency room and that we are providing you with a medical screening exam and this may not be complete and all inclusive of all the testing and or work up that you may need to determine your ailment or severity of your illness. It is very important that you follow up as instructed or that you return to the Emergency Department should you have concerns or if your condition changes or worsens in any way. Coding Level of Care Code ED Tube Cutter for Meera Rasheed
[2023-02-07 12:12] LABS: Basophils # 0.1 10^3/uL (0.0-0.1); Eosinophils # 0.1 10^3/uL (0.0-0.8); Eosinophils % 1.6 %; Hematocrit 45.3 % (37.0-47.0); Hemoglobin 14.6 g/dL (11.5-15.3); Lymphocytes # 1.5 10^3/uL (0.8-4.8); Lymphocytes % 21.3 %; Mean Corpuscular HGB Conc 32.2 g/dL (30.0-36.0); Mean Corpuscular Hemoglobin 29.4 pg (28.0-34.0); Mean Corpuscular Volume 91.3 fl (81-99); Mean Platelet Volume 10.9 fL (7.4-10.4); Monocytes # 0.7 10^3/uL (0.2-0.9); Monocytes % 9.6 %; Neutrophils # 4.64 10^3/uL (1.8-7.7); Neutrophils % 66.1 %; Nucleated Red Blood Cells % 0 %; Platelet Count 213 10^3/cmm (130-400); Red Blood Count 4.96 10^6/uL (4.1-5.3); Red Cell Distribution Width 13.6 % (12.1-15.1)
--- NOTE | 2023-02-07 12:12 | PC.PHAR ---
pt states she takes care of her own medications-pt states she hasnt taken her metformin 1000mg bid for 6 months ext doesnt show when last filled pt states she no longer takes her levothyroxine 50mcg daily last filled 08/01/22 30d/s pt states not taken either for 6 months pt states she forgets to take her meds-pt states she filled cipro 500mg bid and norco 5/325mg q6h prn both written on 01/29/23 ext doesnt show when filled and pt states she hasnt taken either one of the prescriptions-pt states she still takes zanaflex 4mg twice a week ext shows last filled 08/01/22 30d/s 4mg tid prn-notes are made in the pharmacy comments
[2023-02-07] MEDS: metoclopramide 5 mg/mL SDV 2 mL 10 MG IVP (12:20)
[2023-02-07] MEDS: sodium chloride 0.9% 1,000 ML 999 ML IV (12:22)
[2023-02-07 12:30] LABS: HCG, Serum Qual Negative (Negative)
[2023-02-07 12:40] LABS: Alanine Aminotransferase 40 U/L (0-33); Albumin Level 4.1 g/dL (3.5-5.2); Alkaline Phosphatase 120 U/L (35-105); Anion Gap 14.6 (5-19); Aspartate Amino Transferase 20 U/L (0-32); Blood Urea Nitrogen 12 mg/dL (6-20); Calcium 9.2 mg/dL (8.5-10.5); Carbon Dioxide 23 mmol/L (22-29); Chloride 104 mmol/L (98-107); Globulin 3.6 g/dL (1.3-4.6); Glucose 92 mg/dL (65-115); Lipase 15 U/L (13-60); Osmolality Calculated 283 mOsm/kg (285-295); Potassium 4.6 mmol/L (3.5-5.1); Sodium 137 mmol/L (136-145); Total Bilirubin 0.4 mg/dL (0.15-1.2); Total Protein 7.7 g/dL (6.6-8.7)
[2023-02-07 13:22] VITALS: BP 131/02; PULSE 103; RESP 16; O2SAT 100
[2023-02-07 13:56] VITALS: BP 131/02; PULSE 103; RESP 16; O2SAT 100
--- NOTE | 2023-02-12 10:38 | DCPLANNER ---
textile conversion manager was triggered to call patient due to no primary care physician - patient does not live in the area.
== END 2023-02-07 13:58 | disposition home or self-care (01) ==
PROVIDERS: Emergency Medicine; Emergency Provider Physician Assistant
DX: K80.20 Calculus of gallbladder without cholecystitis without obstruction (principal)
CPT/HCPCS: 36415; 76705; 80053; 83690; 84703; 85025; 96361; 96374; 99285; J2765; J7030

== ENCOUNTER 2023-03-06 09:22 | Day surgery (SDC) | payer BC, MEDICAID, SELFPAY ==
[2023-03-05 11:00] VITALS: BMI 63.1
[2023-03-06] VITALS (7 sets, daily range): BP systolic 111–168; BP diastolic 73–96; PULSE 70–96; RESP 16–18; TEMP 36.2–36.3; O2SAT 98–99
[2023-03-06 09:51] LABS: OR HCG Qualitative Urine Negative (Negative)
[2023-03-06] MEDS: sodium chloride 0.9% 1,000 ML 30 ML IV (10:01)
--- NOTE | 2023-03-06 10:03 | W.PM.OPSUD ---
Surgery/Procedure H&P Update DATE OF PROCEDURE: March 06, 2023 DATE H&P PERFORMED: 02/11/23 H&P UPDATE INFORMATION: I have reviewed H&P completed within last 30 days, I have examined patient prior to procedure and No changes to prior documentation PLANNED PROCEDURE: Operation Date: 03/06/23 12:15 Proposed Procedures p 52595 - lap pavel : K80.20(Not Applicable) - Daniel Stratton DO
--- NOTE | 2023-03-06 10:36 | ANES.PREANE2 ---
Pre-Anesthetic Assessment Height/Weight: Height 1.73 m Weight 188.241 kg Temp Pulse Resp BP Pulse Ox O2 Del Method 97.3 F L 87 18 168/96 99 Room Air 03/06/23 09:52 03/06/23 09:52 03/06/23 09:52 03/06/23 09:52 03/06/23 09:52 03/06/23 09:59 Operation Date: 03/06/23 12:15 Proposed Procedures p 18901 - lap pavel : K80.20(Not Applicable) - Daniel Stratton DO Familial anesthetic complications: none Was Beta Maribel taken within 24 hours: N/A Was Clonidine taken within 24 hours: N/A Last intake: Intake Last Liquid Date 03/05/23 Last Liquid Time 21:00 Last Solid Date 03/05/23 Last Solid Time 21:00 Social No alcohol and No tobacco Exam alert, oriented x 3, clear to auscultation bilaterally and regular rate & rhythm Airway Submandibular: within normal limits Cervical ROM: within normal limits Mallampati: Class II Dentition: full Metabolic Morbid Obesity and Thyroid Disease [place] [facility] [place] Lower Back Pain and Osteoarthritis/DJD Anesthetic Plan ASA status: 3 Anesthesia: General Medications/Allergies Home Medications Medication Instructions Recorded Confirmed Last Taken Type naproxen sodium 220 mg tablet 1,100 mg PO DAILY PRN Migraine 09/02/20 03/05/23 2 Weeks Ago History (Phillip) Headache ~01/24/23 hydrocodone 5 mg-acetaminophen 325 1 tab PO Q6H PRN pain #14 tabs 01/29/23 03/05/23 03/02/23 Rx mg tablet ondansetron 4 mg disintegrating 4 mg PO Q6H PRN nausea and 01/29/23 03/05/23 02/07/23 Rx tablet vomiting #14 tabs tizanidine 4 mg tablet 4 mg PO .TWICE A WEEK 02/07/23 03/05/23 Unknown History Allergies Allergy/AdvReac Type Severity Reaction Status Date / Time duloxetine [From Cymbalta] Allergy RASH Verified 03/06/23 09:55 Iodinated Contrast Media Allergy ALGY-Anaphy Verified 03/06/23 09:55 laxis Current Medications Generic Name Dose Route Start Last Admin Trade Name Freq PRN Reason Stop Dose Admin Sodium Chloride 1,000 mls @ 30 mls/hr 03/06/23 09:45 08/17/23 10:01 Sodium Chloride 0.9% IV 03/07/23 09:44 30 mls/hr .Q24H ROSENDO Administration PFSH Anesthesia Medical History (Updated 02/15/23 @ 00:01 by MERCED Simmons) Back pain with history of spinal surgery Surgical History (Updated 02/11/23 @ 09:02 by Daniel Stratton DO) Hx of decompressive lumbar laminectomy Hx of wisdom tooth extraction Social History Smoking and tobacco status: never smoked Alcohol intake: current Substance/Drug Use: never Female Reproductive History Spontaneous abortions: No Data Anesthesia Cardiac Studies: No Data to Display
[2023-03-06] MEDS: ceFAZolin 3,000 MG in sodium chloride 0.9% (100 ml) 100 ML 200 MG IV (11:58)
--- NOTE | 2023-03-06 12:41 | P.OP_ITS ---
Operative Report Date of procedure: March 06, 2023 Pre-op diagnosis: Symptomatic cholelithiasis Post-op diagnosis: same Procedure done: Laparoscopic cholecystectomy Specimens removed/disposition: Gallbladder Surgeon: Dr. Daniel Stratton DO Anesthesia: General Estimated blood loss (mL): 5 Complications: None apparent Brief History: This very pleasant 27-year-old female who presented my office with symptomatic cholelithiasis. Laparoscopic cholecystectomy is indicated. The risk and benefits were explained and documented. Procedure: Patient was wheeled into the operative room and placed on the OR table in a supine position. Abdomen was inspected prepped and draped in usual sterile fashion. Time-out was performed and all present were in agreement. A 15 blade scalp was used to make a stab incision in the left upper quadrant and intra- abdominal insufflation was achieved using a Veress needle. After localizing the tissue incisions were made and a 5 millimeter trocar was placed into the umbilicus as well as 2 in the right upper quadrant. A 12 millimeter trocar was placed in the epigastrium. Gallbladder was grasped and elevated. The triangle of Calot was carefully dissected using blunt dissection and electrocautery until the triangle of Calot clearly identified. The cystic duct was clipped pr oximally and double clipped distally. The duct was then ligated proximally. The cystic artery was doubly clipped and ligated. The gallbladder was then removed from the liver bed using electrocautery. The gallbladder was removed from the abdomen using an Endo-Catch bag through the epigastric incision. The liver bed was inspected and no bleeding was seen. The abdomen was irrigated and suctioned . All ports removed. Skin was washed and dried. Incisions were closed with 4- 0 Monocryl in a subcuticular interrupted fashion. Epigastric incision was closed with 3 oh nylons in a vertical mattress interrupted fashion. Skin glue was applied. Patient tolerated the procedure well.
[2023-03-06] MEDS: lidocaine-epi 2% 20 mL INJ 7 ML INJECTION (12:46)
[2023-03-06] MEDS: ondansetron 2 mg/ML SDV 2 mL 4 MG IVP (13:05)
[2023-03-06] MEDS: diphenhydrAMINE 50 mg/mL SDV 1mL 12.5 MG IVP (13:15)
--- NOTE | 2023-03-06 13:43 | ANE.PACU2 ---
Inpatient post-anesthesia follow up: Airway intact: Yes Vital signs: Temperature 97.2 F Pulse Rate 72 Respiratory Rate 16 Blood Pressure 132/84 Pulse Oximetry 98 Oxygen Delivery Me thod Room Air Oxygen Flow Rate Fraction of Inspir ed Oxygen Hydration adequate: Yes Nausea and vomiting: Yes Pain level: 3 Mental status: Baseline
== END 2023-03-06 14:45 | disposition home or self-care (01) ==
PROVIDERS: PCP Nurse Practitioner Family; Visit Provider Surgery
PROC: 0FT44ZZ Resection of Gallbladder, Percutaneous Endoscopic Approach (ICD-10-PCS; CPT 47562; principal; 2023-03-06 12:05)
DX: K80.10 Calculus of gallbladder with chronic cholecystitis without obstruction (principal); E66.01 Morbid (severe) obesity due to excess calories; Z68.44 Body mass index [BMI] 60.0-69.9, adult; E28.2 Polycystic ovarian syndrome
CPT/HCPCS: 47562; 84703; 88304; J0131; J0330; J0690; J1100; J1200; J1885; J2250; J2405; J2704; J3010; J3490; J7030

== ENCOUNTER → 2023-09-13 10:14 | Outpatient (BNVA) | payer BC, MEDICAID, SELFPAY | PROVIDERS: PCP Nurse Practitioner Family; Visit Provider Emergency Medicine | DX: R68.89 Other general symptoms and signs (principal) | CPT/HCPCS: 87400 ==

== ENCOUNTER → 2024-01-13 11:04 | Outpatient (BNVA) | payer SELFPAY | PROVIDERS: Visit Provider Nurse Practitioner | DX: M51.26 Other intervertebral disc displacement, lumbar region (principal); M51.27 Other intervertebral disc displacement, lumbosacral region; Z86.39 Personal history of other endocrine, nutritional and metabolic disease | CPT/HCPCS: 83036; 84443 ==

== ENCOUNTER 2024-03-13 13:58 | Emergency (ER) | payer SELFPAY ==
[2024-03-13 14:01] VITALS: BP 159/109; PULSE 71; RESP 16; TEMP 36.5; O2SAT 100
--- NOTE | 2024-03-13 15:03 | ED_ITS ---
HPI - Back Pain/Injury General: Chief Complaint: Back Pain/Injury Stated Complaint: back pain Time Seen by Provider: 03/13/24 14:17 Source: patient Mode of arrival: ambulatory Limitations: no limitations History of Present Illness: Patient presents emergency department today accompanied by family for evaluation treatment of concerns for continued low back issues. Patient has well- documented, chronic low back issues with multiple rounds of imaging including XR, CT, and MRI performed since 2021. Patient has also had 2 low back procedures including hemilaminectomy and partial discectomy then followed by another procedure for laminectomy affecting L3-S1. Patient appears to have continued to have low back issues-worsening pain especially through the summer. She was seen in November for acute worsening of her chronic low back pain was treated with Toradol and steroids. In December she became established with a new primary care doctor who recommended physical therapy. He was also noted patient had elevated blood pressure and was offered a blood pressure medication but, patient wanted to try lifestyle modification first. Patient was then seen again just a couple of weeks ago where they had put in an orthopedic referral for her. She was also provided another round of injected steroid IM for her acute pain. Patient notes that she was contacted by pain management. She knew she was not supposed to be seeing pain management so contacted her doctor who indicated they had sent the referral to the wrong place. Patient states she now has a referral to [facility] neurosurgery in [place] and is waiting to get a call about scheduling an appointment. However, patient states that about a week ago she went to go sit down in a rolling chair and she slid out of it. 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 She states that with all of that, she woke this morning with some stool in her underwear and was concerned about her back. She has not had any more stooling or leaking since waking up this morning. She has not had any dribbling or retention of urine. She is ambulatory and weightbearing here in the emergency department. She reports she has insurance that goes into effect March 21. Related Data Previous Rx's Medication Instructions Recorded hydrocodone 5 mg-acetaminophen 325 1 tab PO Q6H PRN pain #14 tabs 01/29/23 mg tablet hydrocodone 10 mg-acetaminophen 1 tab PO Q6H PRN pain #20 tabs 03/06/23 325 mg tablet meloxicam 15 mg tablet 15 mg PO DAILY #30 tabs 01/13/24 methocarbamol 750 mg tablet 750 mg PO BEDTIME #30 tabs 01/13/24 liraglutide 0.6 mg/0.1 mL (18 mg/3 See Rx Instructions SUBCUT 01/21/24 mL) subcutaneous pen injector .COMPLEX #9 mL (Victoza 3-Nahid) methocarbamol 500 mg tablet 1,000 mg (2 x 500 mg) PO TID #30 03/13/24 tabs methylprednisolone 4 mg tablets in See Rx Instructions PO .COMPLEX 03/13/24 a dose pack #21 ea Allergies Allergy/AdvReac Type Severity Reaction Status Date / Time duloxetine [From Cymbalta] Allergy RASH Verified 02/24/24 10:32 Iodinated Contrast Media Allergy ALGY-Anaphy Verified 02/24/24 10:32 laxis Review of Systems General: Reports: 10 or more systems reviewed and unremarkable except in HPI and below PFSH ED PFSH: Medical History Back pain with history of spinal surgery Surgical History Hx of cholecystectomy Hx of wisdom tooth extraction Hx of decompressive lumbar laminectomy Social History Smoking and tobacco/nicotine status: never used tobacco/nicotine Alcohol intake: current Substance/Drug Use: never Female Reproductive History: Spontaneous abortions: No Physical Exam Const: COMMON NORMALS: no acute distress (Patient is laughing. Social, pleasant.), patient oriented x3 and alert HENMT: COMMON NORMALS: normocephalic, atraumatic and hearing grossly normal bilaterally HEAD & SCALP: normocephalic and atraumatic Eye: COMMON NORMALS: Equal, round and reactive pupils present, EOMs intact bilaterally and conjunctivae normal CONJUNCTIVA: Yes conjunctivae normal PUPIL: Yes Equal, round and reactive pupils present Neck/C-Spine: COMMON NORMALS: full ROM and no JVD Resp: COMMON NORMALS: normal respiratory effort, No retractions and No use of accessory muscles Cardio: COMMON NORMALS: no JVD and regular rate RATE: regular rate Extremity: NARRATIVE EXTREMITY EXAM: Patient able to perform full flexion extension capabilities of the bilateral knees and hips. Able to rise and sit from the chair. Weightbearing and ambulatory through the emergency department. Able to perform straight leg raise bilaterally. Neuro: COMMON NORMALS: patient oriented x3 SENSORIUM/ORIENTATION: Yes alert OTHER: Neurovascularly intact distally in the lower extremities. Psych: COMMON NORMALS: mental status grossly normal, Normal thought process present, cooperative and normal affect THOUGHT PROCESS: Normal thought process present Skin: COMMON NORMALS: no rashes or lesions noted and turgor normal GENERAL SKIN EXAM: no rashes or lesions noted and turgor normal OTHER: No edema or pitting edema in the lower extremities. Course Vital Signs: Vital signs: Vital Signs Temperature 97.7 F 03/13/24 15:39 Pulse Rate 69 03/13/24 15:39 Respiratory Rate 16 03/13/24 15:39 Blood Pressure 148/96 03/13/24 15:39 Pulse Oximetry 99 03/13/24 15:39 Oxygen Delivery Me thod Room Air 03/13/24 14:01 MDM - Back Pain/Injury Medical Decision Making Patient presents today for continued concerns of chronic low back issues. As noted in the HPI, patient has had multiple rounds of imaging, 2 procedures on her low back, and through the summer, received IM steroids for acute flareup of pain. She is currently waiting for a referral to [facility] neurology for a second opinion of potential lumbar fusion. Patient states she slid from a rolling chair about a week ago and this morning, states she had some stool in her underwear. However, patient had no loss of her bladder overnight or this morning- got up from bed after waking up and had a normal urinary void. And since this morning, has not had any leaking of stool or urine and has been able to urinate without difficulty. Patient is also fully ambulatory and weightbearing in the emergency department. Patient's pain is chronic and notes progressing over months without any specific acute change in pain today. Discussed with her that at this time I do not think she requires an emergent MRI but, as she indicates progressing of low back pain over the last 4 to 5 months, would recommend she reach out to her primary care doctor to discuss getting an outpatient MRI if she was concerned. Patient also has a referral sent out to neurology/neurosurgery in [place] for a second opinion about further procedures to her low back. She indicated she had not heard back from them so I recommended she call their office on Friday to make sure her referral was received and, to help facilitate scheduling of her appointment. Patient was treated acutely here in the emergency department for complaints of her chronic back pain. She does have a bottom hoop driver with her today. She was given strict return precautions and described symptoms of saddle paresthesia, leg numbness, and lack of bowel or bladder function with her. Explained that if any of these were to occur it would warrant an emergent MRI and likely emergent neurosurgical transfer so she needs to be seen and reevaluated back in the ER if the symptoms do occur. Patient indicated she had run out of her methocarbamol so I did pro vide her another prescription. I encouraged her to continue taking her meloxicam and provided her a Medrol Dosepak as well. Patient verbalized understanding and agreement to treatment plan. Differential Diagnosis Likely lumbar radiculopathy, sciatica and strain of lumbar region; Unlikely renal colic, pyelonephritis or AAA No radiology studies performed this visit Discharge Plan Discharge Patient Disposition: Home Clinical Impression: Herniated nucleus pulposus, L5-S1, left, Herniated nucleus pulposus, L4-5 left, Right lumbar radiculopathy, Status post lumbar laminectomy Condition: Stable Prescriptions: New methocarbamol 500 mg tablet 1,000 mg PO TID Qty: 30 0RF methylprednisolone 4 mg tablets,dose pack See Rx Instructions .ROUTE .COMPLEX Qty: 21 0RF Rx Instructions: orally per package directions No Action meloxicam 15 mg tablet 15 mg PO DAILY Qty: 30 3RF methocarbamol 750 mg tablet 750 mg PO BEDTIME Qty: 30 0RF Victoza 3-Nahid 0.6 mg/0.1 mL (18 mg/3 mL) pen injector See Rx Instructions SUBCUT .COMPLEX Qty: 9 0RF Rx Instructions: inject 0.6mg subcutaneously once daily x 7 days; then 1.2mg daily hydrocodone-acetaminophen 10-325 mg tablet 1 tab PO Q6H PRN (Reason: pain) Qty: 20 0RF Rx Instructions: May take half of a tab at a time hydrocodone-acetaminophen 5-325 mg tablet 1 tab PO Q6H PRN (Reason: pain) Qty: 14 0RF Hold Instructions: Resume on 03/11/23. Discharge Orders: Discharge ED (Routine); Ordered 03/13/24 Ordered By: Ladi Sims Referrals: Mary Kate Thacker FNP [Primary Care Provider] - Discharge Diet: Usual diet Discharge Activity: Increase activity as tolerated Patient Instructions: Lumbar Disc Herniation (ED) Activity Restrictions/Additional Instructions: After spending quite a bit of time in your chart looking over your past imaging and operational notes, I know you have a significant history with your back. I understand your concerns for finding of stool in your underwear this morning but, as you have been able to control your bowel and bladder throughout the day and, as you are bearing weight in her lower extremities, and emergent MRI at this time I do not think is required. If you are continuing to have acute worsening of your pain, your primary care doctor may wish to order an outpatient MRI when your insurance goes into effect in the next week. However, if you develop inability to control your bowel or bladder's-either inability to hold urine and stool or, inability to get it out, lose all sensation and mobility in your lower legs or, develop numbness in your upper inner thigh region on either or both side you need to return to the ER. These are all emergent concerns for neurological issues which would warrant emergent MRI and transfer for further evaluation by neurosurgery immediately. I know you have a referral to neurosurgery in [place] and I would highly encourage you to call the neurosurgery office first thing on Friday to discuss facilitating the scheduling of your appointment. In the meantime, I have provided you a refill on your methocarbamol. You can still rotate use of tizanidine and methocarbamol but, I have increased your methocarbamol dosing to see if that helps better than the dosing you are currently on. Continue taking your meloxicam. I am also giving you a burst of some steroids to help with pain and inflammation in your back as well. Closely monitor your symptoms. Please return to the emergency department for any neurological change in your lower extremities or vaginal/anal region. Coding Level of Care Code ED Crisis Clinician for Meera Rasheed
[2024-03-13] MEDS: HYDROcodone-acetaminophen 5-325 mg Tablet 1 TAB PO (15:13)
[2024-03-13] MEDS: dexamethasone 10 mg/mL INJ IM (15:19)
[2024-03-13] MEDS: orphenadrine 30 mg/mL Inj 2 mL 60 MG IM (15:19)
[2024-03-13] MEDS: ketorolac 60 mg/2 mL INJ IM (15:19)
[2024-03-13 15:39] VITALS: BP 148/96; PULSE 69; RESP 16; TEMP 36.5; O2SAT 99
== END 2024-03-13 15:39 | disposition home or self-care (01) ==
PROVIDERS: Emergency Provider Physician Assistant; PCP Nurse Practitioner
DX: M51.27 Other intervertebral disc displacement, lumbosacral region (principal); M51.16 Intervertebral disc disorders with radiculopathy, lumbar region; Z98.890 Other specified postprocedural states
CPT/HCPCS: 96372; 99284; J1100; J1885; J2360

== ENCOUNTER → 2024-08-16 09:12 | Outpatient (BNVA) | payer BC, SELFPAY | PROVIDERS: PCP Nurse Practitioner; Visit Provider Nurse Practitioner | DX: R68.89 Other general symptoms and signs (principal) | CPT/HCPCS: 87400; 87426 ==

== ENCOUNTER 2024-10-14 20:24 | Emergency (ER) | payer BC, SELFPAY ==
[2024-10-14 20:41] VITALS: BP 132/92; PULSE 94; RESP 17; TEMP 36.4; O2SAT 100; BMI 67.3
[2024-10-14 20:55] LABS: HCG, Serum Qual Negative (Negative)
[2024-10-14 20:59] LABS: Basophils # 0.1 10^3/uL (0.0-0.1); Basophils % 0.8 %; Eosinophils # 0.1 10^3/uL (0.0-0.8); Eosinophils % 1.1 %; Hematocrit 42.9 % (36-47); Lymphocytes # 2.5 10^3/uL (0.8-4.8); Lymphocytes % 23.5 %; Mean Corpuscular HGB Conc 32.2 g/dL (30-55); Mean Corpuscular Hemoglobin 29.3 pg (27-33); Mean Corpuscular Volume 91.1 fl (85-98); Mean Platelet Volume 10.3 fL (7.4-10.4); Monocytes # 0.8 10^3/uL (0.2-0.9); Neutrophils # 6.94 10^3/uL (1.8-7.7); Neutrophils % 66.3 %; Nucleated Red Blood Cells % 0 %; Platelet Count 268 10^3/cmm (157-399); Red Blood Count 4.71 10^6/uL (3.85-5.65); Red Cell Distribution Width 13.7 % (12.1-15.1); White Blood Count 10.44 10^3/uL (3.29-11.43)
[2024-10-14 21:01] LABS: Alanine Aminotransferase 52 U/L (0-33); Alkaline Phosphatase 94 U/L (35-105); Anion Gap 16.8 (5-19); Aspartate Amino Transferase 21 U/L (0-32); Blood Urea Nitrogen 17 mg/dL (6-20); Calcium 9.1 mg/dL (8.5-10.5); Carbon Dioxide 21 mmol/L (22-29); Chloride 101 mmol/L (98-107); Globulin 3.9 g/dL (1.3-4.6); Glomerular Filtration Rate 101.1 mL/min (90-130); Glucose 80 mg/dL (65-115); Osmolality Calculated 281 mOsm/kg (285-295); Potassium 3.8 mmol/L (3.5-5.1); Sodium 135 mmol/L (136-145); Total Bilirubin 0.5 mg/dL (0.15-1.2); Total Protein 7.9 g/dL (6.6-8.7)
[2024-10-14 21:28] VITALS: BP 134/78; PULSE 86; RESP 16; O2SAT 99
--- NOTE | 2024-10-14 21:31 | ED_ITS ---
HPI - Female Genitourinary 2 General: Chief complaint: Vaginal Bleeding Stated complaint: on menstral for 25 days had ITP as a child Time Seen by Provider: 10/14/24 21:13 Source: patient Mode of arrival: ambulatory Limitations: no limitations History of Present Illness: 28yo female presents with family for con cern of abnormal labs due to vaginal bleeding. Patient reports that she is had vaginal bleeding for the past 25 days. States that she was seen recently and prescribed medication to help with the vaginal bleeding, but remembered this afternoon that she has a history of ITP. She is very concerned that her platelets may be low. Patient reports that she does have a SALES OFFICER appointment next week. She denies any other concerns at this time. Associated symptoms: Deny abdominal pain Related Data Previous Rx's ?Medication ?Instructions ?Recorded hydrocodone 5 mg-acetaminophen 325 1 tab PO Q6H PRN pa in #14 tabs 01/29/23 mg tablet Held on 03/06/23. Instructions: Resume on 03/11/23. hydrocodone 10 mg-acetaminophen 1 tab PO Q6H PRN pain #20 tabs 03/06/23 325 mg tablet meloxicam 15 mg tablet 15 mg PO DAILY #90 tabs 04/20 12/11 nystatin 100,000 unit/gram topical 1 applic topical BI D #30 grams 05/04/24 ointment nystatin 100,000 unit/gram topical 1 applic topical BI D #60 grams 06/10/24 powder pen needle, diabetic 32 gauge x #100 ea 06/10/2407/24 (Comfort EZ Pen [place]) lisinopril 5 mg tablet See Rx Instructions .Route 0 08/09/24 .COMPLEX #30 tabs losmpuilhhnjhuv-unhbcusbpfbdflh-EW 5 ml PO Q6H PRN all ergy symptoms 08/16/24 2 mg-30 mg-10 mg/5 mL oral syrup #118 mL (Bromfed DM) methylprednisolone 4 mg tablets in See Rx Instructions PO PER PKG DIR 08/23/24 a dose pack (Medrol (Nahid)) #21 ea tizanidine 6 mg capsule See Rx Instructions .Route 0 09/29/24 .COMPLEX #120 caps Allergies Allergy/AdvReac Type Severity Reaction Status Date / Time duloxetine (From Cymbalta) Allergy RASH Verified 08/16/24 08:33 Iodinated Contrast Media Allergy ALGY-Anaphy Verified 08/16/24 08:33 laxis Review of Systems 2 Const: Denies: fever(s), chills or body aches GI: Denies: abdominal pain or vomiting : Reports: vaginal bleeding PFSH ED 2 PFSH: Medical History Back pain with history of spinal surgery Surgical History Hx of cholecystectomy Hx of wisdom tooth extraction Hx of decompressive lumbar laminectomy Social History Smoking and tobacco/nicotine status: never used tobacco/nicotine Alcohol intake: current Substance/Drug Use: never Female Reproductive History: Spontaneous abortions: No Physical Exam 2 Const: COMMON NORMALS: no acute distress, patient oriented x3, healthy appearing and alert GENERAL APPEARANCE: cooperative O RIENTATION/CONSCIOUSNESS: Yes awake OTHER: Patient is sitting upright on the stretcher no acute distress. She is able to give history with no difficulty. She is interactive with exam appropriately. Family is at bedside HENMT: COMMON NORMALS: normocephalic and atraumatic HEAD & SCALP: n ormocephalic and atraumatic Resp: COMMON NORMALS: normal respiratory effort Neuro: COMMON NORMALS: patient oriented x3 SENSORIUM/ORIENTATION: Yes alert Psych: COMMON NORMALS: cooperative Course 2 Vital Signs: Vital signs: Vital Signs Temperature 97.5 F L 10/14/24 20:41 Pulse Rate 86 10/14/24 21:28 Respiratory Rate 16 10/14/24 21:28 Blood Pressure 134/78 10/14/24 21:28 Pulse Oximetry 99 10/14/24 21:28 Oxygen Delivery Me thod Room Air 10/14/24 21:28 MDM - Female Medical Decision Making 28yo female presents with family for concern of abnormal labs due to vaginal bleeding. Patient reports that she is had vaginal bleeding for the past 25 days. States that she was seen recently and prescribed medication to help with the vaginal bleeding, but remembered this afternoon that she has a history of ITP. She is very concerned that her platelets may be low. Patient reports that she does have a SALES OFFICER appointment next week. She denies any other concerns at this time. Patient is nontoxic in appearance. Vital signs are stable. No leukocytosis or indication of anemia. White blood cell count noted to be 10.44 with a hemoglobin of 13.8 and platelets of 268. Discussed these findings with the patient. Patient was very relieved of her labs and reported no other concerns at this time. Encourage patient to continue with her previously prescribed medications to help with the vaginal bleeding. Recommend she keep her previously scheduled appointment with SALES OFFICER for next week. Return precautions provided. Patient states understanding has no further questions or concerns at this time. Lab Data I reviewed the patient's lab results. 10/14/24 20:36 10/14/24 20:36 Laboratory Results WBC 10.44 10^3/uL (3.29-11.43) 10/14/24 20: RBC 4.71 10^6/uL (3.85-5.65) 10/14/24 20:36 Hgb 13.80 g/dL (11.27-16.99) 10/14/24 20:36 Hct 42.9 % (36-47) 10/14/24 20:36 MCV 91.1 fl (85-98) 10/14/24 20:36 MCH 29.3 pg (27-33) 10/14/24 20:36 MCHC 32.2 g/dL (30-55) 10/14/24 20:36 RDW 13.7 % (12.1-15.1) 10/14/24 20:36 Plt Count 268 10^3/cmm (157-399) 10/14/24 20:36 MPV 10.3 fL (7.4-10.4) 10/14/24 20:36 Neut % (Auto) 66.3 % 10/14/24 20:36 Lymph % (Auto) 23.5 % 10/14/24 20:36 Sebastian % (Auto) 8.0 % 10/14/24 20:36 Eos % (Auto) 1.1 % 10/14/24 20:36 Baso % (Auto) 0.8 % 10/14/24 20:36 Neut # (Auto) 6.94 10^3/uL (1.8-7.7) 10/14/24 20:36 Lymph # (Auto) 2.5 10^3/uL (0.8-4.8) 10/14/24 20:36 Sebastian # (Auto) 0.8 10^3/uL (0.2-0.9) 10/14/24 20:36 Eos # (Auto) 0.1 10^3/uL (0.0-0.8) 10/14/24 20:36 Baso # (Auto) 0.1 10^3/uL (0.0-0.1) 10/14/24 20:36 Nucleated RBC % (auto) 0 % 10/14/24 20:36 Nucleated RBCs # 0.0 /100WBC 10/14/24 20:36 Sodium 135 mmol/L (136-145) L 10/14/24 20:36 Potassium 3.8 mmol/L (3.5-5.1) 10/14/24 20:36 Chloride 101 mmol/L (98-107) 10/14/24 20:36 Carbon Dioxide 21 mmol/L (22-29) L 10/14/24 20:36 Anion Gap 16.8 (5-19) 10/14/24 20:36 BUN 17 mg/dL (6-20) 10/14/24 20:36 Creatinine 0.7 mg/dL (0.5-0.9) 10/14/24 20:36 GFR Calculation 101.1 mL/min (90-130) 10/14/24 20:36 Glucose 80 mg/dL (65-115) 10/14/24 20:36 Calculated Osmolality 281 mOsm/kg (285-295) L 10/14/24 20:36 Calcium 9.1 mg/dL (8.5-10.5) 10/14/24 20:36 Total Bilirubin 0.5 mg/dL (0.15-1.2) 10/14/24 20:36 AST 21 U/L (0-32) 10/14/24 20:36 ALT 52 U/L (0-33) H 10/14/24 20:36 Alkaline Phosphatase 94 U/L (35-105) 10/14/24 20:36 Total Protein 7.9 g/dL (6.6-8.7) 10/14/24 20:36 Albumin 4.0 g/dL (3.5-5.2) 10/14/24 20:36 Globulin 3.9 g/dL (1.3-4.6) 10/14/24 20:36 HCG, Qual Negative (Negative) 10/14/24 20:36 No radiology studies performed this visit Discharge Plan Discharge Patient Disposition: Home Clinical Impression: Dysfunctional uterine bleeding Condition: Stable Prescriptions: No Action nystatin 100,000 unit/gram powder 1 applic topical BID Qty: 60 1RF (DME) pen needle, diabetic [Comfort EZ Pen [place]] 32 gauge x 1/4 needle See Rx Instructions .Route Qty: 100 2RF Rx Instructions: As directed meloxicam 15 mg tablet 15 mg PO DAILY Qty: 90 3RF nystatin 100,000 unit/gram ointment 1 applic topical BID Qty: 30 3RF qjkcqtdosrwkmvj-gmcbrsjvz-AH [Bromfed DM] 2-30-10 mg/5 mL syrup 5 ml PO Q6H PRN (Reason: allergy symptoms) Qty: 118 0RF lisinopril 5 mg tablet See Rx Instructions .ROUTE .COMPLEX Qty: 30 0RF Dose Instruction: Take 1 tablet by mouth once daily Rx Instructions: Take 1 tablet by mouth once daily methylprednisolone [Medrol (Nahdi)] 4 mg tablets,dose pack See Rx Instructions PO PER PKG DIR Qty: 21 0RF Rx Instructions: PO PER PKG DIR tizanidine 6 mg capsule See Rx Instructions .ROUTE .COMPLEX Qty: 120 0RF Dose Instruction: TAKE 1 CAPSULE BY MOUTH TWICE DAILY NEEDED FOR MUSCLE SPASTICITY Rx Instructions: TAKE 1 CAPSULE BY MOUTH TWICE DAILY NEEDED FOR MUSCLE SPASTICITY hydrocodone-acetaminophen 10-325 mg tablet 1 tab PO Q6H PRN (Reason: pain) Qty: 20 0RF Rx Instructions: May take half of a tab at a time hydrocodone-acetaminophen 5-325 mg tablet 1 tab PO Q6H PRN (Reason: pain) Qty: 14 0RF Discharge Orders: Discharge ED (Routine); Ordered 10/14/24 Ordered By: Leodan Buenrostro Referrals: Mary Kate Thacker FNP [Primary Care Provider] - Discharge Diet: Usual diet Discharge Activity: Resume usual activity Activity Restrictions/Additional Instructions: Your hemoglobin was 13.8 and your platelets were 268, both are well within the normal range Continue with your previously prescribed medications to help with the vaginal bleeding Make every effort to keep your SALES OFFICER appointment for next week Return to the emergency department if any rapid worsening symptoms and as needed Print Language: Swedish Coding Level of Care Code ED Sole Assessor for Meera Rasheed
[2024-10-14 22:30] VITALS: BP 114/74; PULSE 83; RESP 16; O2SAT 95
== END 2024-10-14 22:10 | disposition home or self-care (01) ==
PROVIDERS: Emergency Medicine; Emergency Provider Nurse Practitioner; PCP Nurse Practitioner
DX: N93.8 Other specified abnormal uterine and vaginal bleeding (principal)
CPT/HCPCS: 36415; 80053; 84703; 85025; 99283

== ENCOUNTER → 2025-05-16 13:20 | Outpatient (BNVA) | payer BC, SELFPAY | PROVIDERS: PCP Nurse Practitioner; Visit Provider Podiatrist Foot & Ankle Surgery | DX: M72.2 Plantar fascial fibromatosis (principal); M21.6X1 Other acquired deformities of right foot; M21.6X2 Other acquired deformities of left foot | CPT/HCPCS: 73630 ==

== ENCOUNTER → 2025-05-25 08:49 | Outpatient (BNVA) | payer BC, SELFPAY | PROVIDERS: PCP Nurse Practitioner; Visit Provider Nurse Practitioner | DX: R68.89 Other general symptoms and signs (principal); J02.9 Acute pharyngitis, unspecified | CPT/HCPCS: 87071; 87400; 87426; 87880 ==